=== PATIENT | male | born 1970 | race Caucasian/White ===

== ENCOUNTER 2016-06-28 15:41 | Emergency (ER) | payer MEDICAID ==
--- NOTE | 2016-06-28 15:53 | ER Document Report ---
ED Medical Screen (RME) - General Stated Complaint: LEFT ANKLE PAIN Notes: Acute on chronic left ankle pain. I greeted and performed a rapid initial assessment of this patient. Comprehensive ED assessment and evaluation of the patient, analysis of test results and completion of the medical decision making process will be conducted by additional ED providers. TRAVEL OUTSIDE OF THE [place] IN LAST 30 DAYS: No - Related Data Allergies/Adverse Reactions: No Known Allergies Allergy (Verified 04/03/16 11:09) Past Medical History - Past Medical History Cardiac Medical History: Reports: Hx Hypertension - history of Neurological Medical History: Reports: Hx Migraine GI Medical History: Reports: Hx Hepatitis Musculoskeltal Medical History: Reports Hx Arthritis, Reports Hx Musculoskeletal Deformity, Reports Hx Musculoskeletal Trauma Psychiatric Medical History: Reports: Hx Attention Deficit Hyperactivity Disorder Traumatic Medical History: Reports: Hx Fractures Infectious Medical History: Reports: Hx Hepatitis, Hx MRSA Past Surgical History: Reports: Hx Orthopedic Surgery - Right mary beth osteomyletits , rt leg ambutation, zycomatic fracture repair - Immunizations Immunizations up to date: Yes Hx Diphtheria, Pertussis, Tetanus Vaccination: Yes Physical Exam - Vital signs Vitals: Temp Pulse Resp BP Pulse Ox 98.2 F 97 20 127/85 H 98 06/28/16 15:50 06/28/16 15:50 06/28/16 15:50 06/28/16 15:50 06/28/16 15:50 Course - Vital Signs Vital signs: Temp Pulse Resp BP Pulse Ox 98.2 F 97 20 127/85 H 98 06/28/16 15:50 06/28/16 15:50 06/28/16 15:50 06/28/16 15:50 06/28/16 15:50
--- NOTE | 2016-06-28 16:48 | ER Document Report ---
HPI - HPI Patient complains to provider of: chronic ankle pain Pain Level: 4 Context: Patient is a 45-year-old male presents emergency Department complaining of acute on chronic left ankle pain. Patient has a history of osteomyelitis that her resulted in a previous right foot amputation low the ankle. Patient states that he occasionally has a flareup of pain in his left ankle that he feels requires narcotics for management. Patient is not compliant with pain management or primary care follow-up. He is also been recommended to follow up with orthopedics if she states he hasn't done recently. denies any street drugs - REPRODUCTIVE Reproductive: DENIES: : - DERM Skin Color: Normal Past Medical History - General Information source: Patient - Social History Smoking Status: Current Every Day Smoker Chew tobacco use (# tins/day): No Frequency of alcohol use: Occasional Drug Abuse: None Family History: Reviewed & Not Pertinent, DM Patient has suicidal ideation: No Patient has homicidal ideation: No - Past Medical History Cardiac Medical History: Reports: Hx Hypertension - history of Neurological Medical History: Reports: Hx Migraine Renal/ Medical History: Denies: Hx Peritoneal Dialysis GI Medical History: Reports: Hx Hepatitis Musculoskeltal Medical History: Reports Hx Arthritis, Reports Hx Musculoskeletal Deformity, Reports Hx Musculoskeletal Trauma Psychiatric Medical History: Reports: Hx Attention Deficit Hyperactivity Disorder Traumatic Medical History: Reports: Hx Fractures Infectious Medical History: Reports: Hx Hepatitis, Hx MRSA Past Surgical History: Reports: Hx Orthopedic Surgery - Right mary beth osteomyletits , rt leg ambutation, zycomatic fracture repair - Immunizations Immunizations up to date: Yes Hx Diphtheria, Pertussis, Tetanus Vaccination: Yes Vertical Provider Document - CONSTITUTIONAL Agree With Documented VS: Yes General Appearance: WD/WN, No Apparent Distress - INFECTION CONTROL TRAVEL OUTSIDE OF THE [place] IN LAST 30 DAYS: No - HEENT Notes: pupils were pinpoint but reactive to light - RESPIRATORY O2 Sat by Pulse Oximetry: 98 - CARDIOVASCULAR Pulses: Normal: Posterior tibial, Dorsalis pedis - MUSCULOSKELETAL/EXTREMETIES Musculoskeletal/Extremeties: MAEW, FROM, Tender - superficial tenderness with palpation of DP and cap refill, No Edema. negative: Eccymosis - NEURO Level of Consciousness: Awake, Alert, Appropriate Motor/Sensory: No Motor Deficit, No Sensory Deficit - DERM Integumentary: Warm, Dry, No Rash Course - Re-evaluation Re-evalutation: 06/28/16 16:45 Upon review of patient's history physical exam and previous visits there is also no evidence of acute fracture or dislocation or injury to the ankle. Patient denies any injury to the ankle. Recommending NSAIDs and prednisone Dosepak for current pain can follow-up with his primary care provider, orthopedists for pain management as indicated. - Vital Signs Vital signs: Temp Pulse Resp BP Pulse Ox 98.2 F 97 20 127/85 H 98 06/28/16 15:50 06/28/16 15:50 06/28/16 15:50 06/28/16 15:50 06/28/16 15:50 - Diagnostic Test Radiology reviewed: Image reviewed, Reports reviewed Discharge - Discharge Clinical Impression: Chronic ankle pain Qualifiers: Laterality: left Qualified Code(s): M25.572 - Pain in left ankle and joints of left foot; G89.29 - Other chronic pain Condition: Good Disposition: HOME, SELF-CARE Instructions: Ice & Elevation ([facility]) Additional Instructions: Please follow-up with your primary care provider given chronic nature of this pain. Indicated for referral to pain management. He can also follow up with Dr. Stark at orthopedics for any further evaluation. Prescriptions: Ketorolac Tromethamine [Toradol 10 mg Tablet] 10 mg PO Q8HP PRN #25 tablet PRN Reason: Prednisone 5 mg PO ASDIR #1 tab.ds.pk Referrals: BRENDON STARK MD [ACTIVE STAFF] - Follow up as needed
[2016-06-28] MEDS ORDERED: KETOROLAC TROMETHAMINE 60 MG/2 ML SDV IM ONE (16:49)
[2016-06-28 17:20] VITALS: BP 118/69
== END 2016-06-28 17:20 | disposition home or self-care (01) ==
LOC: ER 15:41
DX: G89.29 Other chronic pain (principal); M25.572 Pain in left ankle and joints of left foot; F17.200 Nicotine dependence, unspecified, uncomplicated; Z86.14 Personal history of Methicillin resistant Staphylococcus aureus infection
CPT/HCPCS: 99283; 96374; 73610; J1885

== ENCOUNTER 2016-08-04 02:53 | Emergency (ER) | payer MEDICAID ==
--- NOTE | 2016-08-04 07:59 | ER Document Report ---
HPI - HPI Patient complains to provider of: twisted left ankle Onset: Yesterday Onset/Duration: Sudden Quality of pain: Throbbing Pain Level: 4 Context: 45-year-old male twisted his left ankle on the car mat stood afternoon. X-ray is negative. Associated Symptoms: None Exacerbated by: Movement, Walking - He does not want crutches because his new infant son is being discharged today Relieved by: Denies - ROS ROS below otherwise negative: Yes Systems Reviewed and Negative: Yes All other systems reviewed and negative - REPRODUCTIVE Reproductive: DENIES: : - DERM Skin Color: Normal, [place] Past Medical History - General Information source: Patient - Social History Smoking Status: Current Every Day Smoker Chew tobacco use (# tins/day): No Frequency of alcohol use: None Drug Abuse: None Lives with: Spouse/Significant other Family History: Reviewed & Not Pertinent, DM - Past Medical History Cardiac Medical History: Reports: Hx Hypertension - history of Neurological Medical History: Reports: Hx Migraine Renal/ Medical History: Denies: Hx Peritoneal Dialysis GI Medical History: Reports: Hx Hepatitis Musculoskeltal Medical History: Reports Hx Arthritis, Reports Hx Musculoskeletal Deformity, Reports Hx Musculoskeletal Trauma Psychiatric Medical History: Reports: Hx Attention Deficit Hyperactivity Disorder Traumatic Medical History: Reports: Hx Fractures Infectious Medical History: Reports: Hx Hepatitis, Hx MRSA Past Surgical History: Reports: Hx Orthopedic Surgery - Right mary beth osteomyletits , rt leg ambutation, zycomatic fracture repair - Immunizations Immunizations up to date: Yes Hx Diphtheria, Pertussis, Tetanus Vaccination: Yes Vertical Provider Document - CONSTITUTIONAL Agree With Documented VS: Yes Exam Limitations: No Limitations - INFECTION CONTROL TRAVEL OUTSIDE OF THE [place] IN LAST 30 DAYS: No - HEENT HEENT: Normocephalic - NECK Neck: Supple - RESPIRATORY O2 Sat by Pulse Oximetry: 96 - MUSCULOSKELETAL/EXTREMETIES Musculoskeletal/Extremeties: MAEW, FROM, Tender - Just inferior to the medial malleolus, Edema - Minimal. negative: Eccymosis Notes: 2+ DP - NEURO Level of Consciousness: Awake, Alert - DERM Integumentary: Warm, Dry, No Rash Course - Vital Signs Vital signs: Temp Pulse Resp BP Pulse Ox 97.9 F 102 H 18 134/82 H 96 08/04/16 03:00 08/04/16 03:00 08/04/16 03:00 08/04/16 03:00 08/04/16 03:00 Procedures - Immobilization Left Ankle Time completed: 08:09 Pre-Proc Neuro Vasc Exam: Normal Immobilizer type: Demetrius wrap Performed by: PCT Post-Proc Neuro Vasc Exam: Normal Alignment checked and good: Yes Discharge - Discharge Clinical Impression: left ankle sprain Condition: Good Disposition: HOME, SELF-CARE Instructions: Sprained Ankle ([facility]), Anti-Inflammatory Medication ([facility]) Additional Instructions: see orthopedic doctor if persists Return to the emergency room if worse Prescriptions: Ibuprofen [Motrin 800 mg Tablet] 800 mg PO Q8HP PRN #30 tablet PRN Reason: Referrals: ABDIAS WILLETT MD [Primary Care Provider] - Follow up as needed
[2016-08-04] MEDS ORDERED: IBUPROFEN 800 MG TABLET PO ONE (08:04)
[2016-08-04 08:33] VITALS: BP 116/87
== END 2016-08-04 08:32 | disposition home or self-care (01) ==
LOC: ER 02:53
DX: S93.402A Sprain of unspecified ligament of left ankle, initial encounter (principal); X50.1XXA Overexertion from prolonged static or awkward postures, initial encounter; F17.210 Nicotine dependence, cigarettes, uncomplicated
CPT/HCPCS: 99283

== ENCOUNTER 2017-01-02 03:39 | Emergency (ER) | payer OTHER, MEDICAID ==
[2017-01-02] MEDS ORDERED: PROMETHAZINE HCL 25 MG TABLET PO ONE (03:49)
[2017-01-02] MEDS ORDERED: CLONIDINE 0.1 MG/24 HR PATCH.TDWK TD ONE (03:49)
[2017-01-02 05:06] LABS: AMORPHOUS SEDIMENT,URINE TRACE /HPF; APPEARANCE,URINE CLOUDY; BILIRUBIN,URINE NEGATIVE (NEGATIVE); GLUCOSE, URINE NEGATIVE (NEGATIVE); KETONES,URINE NEGATIVE (NEGATIVE); LEUKOCYTE ESTERASE,URINE NEGATIVE (NEGATIVE); NITRITE,URINE NEGATIVE (NEGATIVE); PROTEIN,URINE NEGATIVE (NEGATIVE); URINE SPECIFIC GRAVITY 1.024
[2017-01-02 05:23] LABS: URINE BARBITURATES SCREEN NEGATIVE; URINE METHADONE SCREEN NEGATIVE; URINE PHENCYCLIDINE SCREEN NEGATIVE
[2017-01-02 05:26] LABS: ABSOLUTE BASOPHILS # (AUTO) 0.1 10^3/uL (0.0-0.2); ABSOLUTE EOSINOPHILS # (AUTO) 0.3 10^3/uL (0.0-0.6); ABSOLUTE LYMPHOCYTES (AUTO) 2.6 10^3/uL (0.5-4.7); ABSOLUTE MONOCYTES (AUTO) 0.9 10^3/uL (0.1-1.4); ABSOLUTE NEUT (AUTO) 4.4 10^3/uL (1.7-8.2); BASOPHILS % (AUTO) 0.9 % (0-2); EOSINOPHILS % (AUTO) 3.1 % (0-6); HEMATOCRIT 39.9 % (37.9-51.0); HGB HCT DIFFERENCE 2.1; LYMPHOCYTES % (AUTO) 31.8 % (13-45); MEAN CORPUSCULAR HEMOGLOBIN 31.7 pg (27.0-33.4); MEAN CORPUSCULAR HGB CONC 35.1 g/dL (32.0-36.0); MEAN CORPUSCULAR VOLUME 90 fl (80-97); MONOCYTES % (AUTO) 10.9 % (3-13); RED BLOOD COUNT 4.42 10^6/uL (4.35-5.55); RED CELL DISTRIBUTION WIDTH 12.9 % (11.5-14.0); SEGMENTED NEUTROPHILS % (AUTO) 53.3 % (42-78); WHITE BLOOD COUNT 8.2 10^3/uL (4.0-10.5)
--- NOTE | 2017-01-02 05:28 | ER Document Report ---
ED General - General Chief Complaint: Psych Problem Stated Complaint: PSYCH EVAL Time Seen by Provider: 01/02/17 03:44 Notes: Patient is a 46-year-old male who presents with complaints of opiate dependence and severe depression. Patient says he last used heroin yesterday. He says he has had some nausea but no significant vomiting. No fevers. He says that he has a child now. He says he is trying to off opiates. He says he has been very depressed. He says he has not been suicidal but has been very depressed and wants help. He has no other complaints at this time. TRAVEL OUTSIDE OF THE [place] IN LAST 30 DAYS: No - Related Data Allergies/Adverse Reactions: No Known Allergies Allergy (Verified 08/04/16 03:58) Past Medical History - Social History Smoking Status: Current Every Day Smoker Frequency of alcohol use: Occasional Drug Abuse: Heroin Family History: Reviewed & Not Pertinent, DM - Past Medical History Cardiac Medical History: Reports: Hx Hypertension - history of Neurological Medical History: Reports: Hx Migraine Renal/ Medical History: Denies: Hx Peritoneal Dialysis GI Medical History: Reports: Hx Hepatitis Musculoskeltal Medical History: Reports Hx Arthritis, Reports Hx Musculoskeletal Deformity, Reports Hx Musculoskeletal Trauma Psychiatric Medical History: Reports: Hx Attention Deficit Hyperactivity Disorder Traumatic Medical History: Reports: Hx Fractures Infectious Medical History: Reports: Hx Hepatitis, Hx MRSA Past Surgical History: Reports: Hx Orthopedic Surgery - Right mary beth osteomyletits , rt leg ambutation, zycomatic fracture repair - Immunizations Immunizations up to date: Yes Hx Diphtheria, Pertussis, Tetanus Vaccination: Yes Review of Systems - Review of Systems Notes: My Normal Review Basic REVIEW OF SYSTEMS: CONSTITUTIONAL : Denies fever, chills, or sweats. Denies recent illness. RESPIRATORY: Denies cough, cold, or chest congestion. Denies shortness of breath, difficulty breathing, or wheezing. GASTROINTESTINAL: Denies abdominal pain. Denies nausea, vomiting, or diarrhea. Denies constipation. Last BM: MUSCULOSKELETAL: Denies neck or back pain or joint pain or swelling. SKIN: Denies rash or skin lesions. NEUROLOGICAL: Denies altered mental status or loss of consciousness. Denies headache. Denies weakness or paralysis or loss of use of either side. Denies problems with gait or speech. Denies sensory or motor loss. PSYCHIATRIC: Depression ALL OTHER SYSTEMS REVIEWED AND NEGATIVE. Physical Exam - Vital signs Vitals: Resp 16 01/02/17 03:46 - Notes Notes: General Appearance: Well nourished, alert, cooperative, no acute distress, no obvious discomfort. Tearful. Vitals: reviewed, See vital signs table. Head: no swelling or tenderness to the head Eyes: PERRL, EOMI, Conjuctiva clear Mouth: No decreasd moisture Lungs: No wheezing, No rales, No rhonci, No accessory muscle use, good air exchange bilaterally. Heart: Normal rate, Regular rythm, No murmur, no rub Abdomen: Normal BS, soft, No rigidity, No abdominal tenderness, No guarding, no rebound, no abdominal masses, no organomegaly Extremities: strength 5/5 in all extremities, good pulses in all extremities, no swelling or tenderness in the extremities, no edema. Skin: warm, dry, appropriate color, no rash Neuro: speech clear, oriented x 3, normal affect, responds appropriately to questions. Course - Re-evaluation Re-evalutation: 01/02/17 06:44 Patient is medically stable for psychiatric evaluation due to his depression and opiate dependence. Patient is currently voluntary and does not currently meet criteria for involuntary commitment. 01/02/17 06:46 - Vital Signs Vital signs: Temp Pulse Resp BP Pulse Ox 97.4 F 80 16 127/79 H 97 01/02/17 05:39 01/02/17 05:39 01/02/17 03:46 01/02/17 05:39 01/02/17 05:39 - Laboratory Result Diagrams: 01/02/17 05:00 01/02/17 05:00 Laboratory results interpreted by me: 01/02/17 01/02/17 04:30 05:00 AST 64 H Urine Urobilinogen 4.0 H Salicylates < 1.0 L Acetaminophen < 10 L - EKG Interpretation by Me Additional EKG results interpreted by me: 01/02/17 05:28 EKG is reviewed and interpreted by me. EKG shows normal sinus rhythm with a rate of [address] segment elevation or depression. No ischemic T-wave inversions. [place] interval, QRS duration, QTc intervals are within normal range. Old EKG for comparison is from May 26, 2015. Discharge - Discharge Clinical Impression: Opiate abuse, continuous Depression Qualifiers: Depression Type: unspecified Qualified Code(s): F32.9 - Major depressive disorder, single episode, unspecified Condition: Stable Disposition: PSYCH HOSP/UNIT
[2017-01-02 05:29] LABS: URINE OPIATES LOW UNCONFIRMED POSITIVE
[2017-01-02 05:30] LABS: ALANINE AMINOTRANSFERASE 64 U/L (21-72); ALBUMIN 3.6 g/dL (3.5-5.0); ALKALINE PHOSPHATASE 63 U/L (38-126); ANION GAP 8 (5-19); ASPARTATE AMINO TRANSFERASE 64 U/L (17-59); BILIRUBIN,DIRECT 0.3 mg/dL (0.0-0.4); BILIRUBIN,TOTAL 0.6 mg/dL (0.2-1.3); BLOOD UREA NITROGEN 14 mg/dL (7-20); CALCIUM 8.9 mg/dL (8.4-10.2); CARBON DIOXIDE 26 mmol/L (22-30); CHLORIDE 105 mmol/L (98-107); CREATININE RESULT 0.87 mg/dL (0.52-1.25); GLUCOSE 102 mg/dL (75-110); POTASSIUM 4.1 mmol/L (3.6-5.0); SODIUM 139.1 mmol/L (137-145); TOTAL PROTEIN 7.5 g/dL (6.3-8.2)
[2017-01-02 05:31] LABS: ALCOHOL < 10 mg/dL (NONE DETECTED)
--- NOTE | 2017-01-02 05:57 | EKG REPORT ---
SEVERITY:- NORMAL ECG - SINUS RHYTHM : Confirmed by: Gabbi Gaines MD 02-Jan-2017 05:57:02
--- NOTE | 2017-01-02 11:03 | ER Document Report ---
ED Psych Disorder / Suicide - General TRAVEL OUTSIDE OF THE [place] IN LAST 30 DAYS: No <MACHO HASTINGS - Last Filed: 01/02/17 08:51> <BIRD PATRICIO - Last Filed: 01/02/17 13:17> - General Chief Complaint: Psych Problem Stated Complaint: PSYCH EVAL Time Seen by Provider: 01/02/17 03:44 - HPI Notes: Patient is a 46-year-old male who presents with complaints of opiate dependence and severe depression. Patient says he last used heroin yesterday. He says he has had some nausea but no significant vomiting. No fevers. He says that he has a child now. He says he is trying to off opiates. He says he has been very depressed. He says he has not been suicidal but has been very depressed and wants help. Patient states he came to [facility] ED because he is "strung out, I need help both physically and mentally." Patient states he has never gone in patient for substances abuse. His drug of choice is heroin and he has been using "a while. " Patient disclosed he has a mental health history to include diagnosis of ADHA , depression and bipolar. He was diagnosed back "sometime time in the 80s while in longterm." Patient states he has been in longterm "more than 10 times" the last being in 2013. Patient states he came for substance abuse treatment assistance. Clinician provided both in patient and out patient substance abuse treatment resources; patient became agitated stating "you are not going to send my to [facility]?" it was explained to patient [facility] do not provide substance abuse treatment only mental health. Patient came anger stating clinician was not helping him, he has both substance abuse and mental health and he came for help. Patient started to cuss and demand his clothing. Patient has current arrest on November 04, 2016 (released from [facility] November 07, 2016) for possession of control substance schedule 1, and two counts of drug paraphernalia. Patient has 8 current up coming cases in court; Reckless driving , failure to stop/hit and run (01/27/2017), Speeding reckless driving (01/28/2017) , DWLR, not impaired (01/28/2017), failure to wear seat belt/ DWLR, not impaired (02/06/2017),DWLR, not impaired (02/25/2017), tags, no registration (2016), no insurance (02/25/2017), possession of heroin/paraphernalia (03/17/2017) . Patient is alert and orientated to person, place, time and circumstance. Mood is irritable with expressive affect. Patient is verbal with yelling and cussing. Patient denies suicidal and homicidal ideation. no delusions are noted. Patient is not demonstrating any behaviour congruent with responding to internal stimuli. Thought process is organized and linear. Patient made no eye contact until be became upset and starting yelling. conversational speech was low and mumbled until agitation which turned to yelling and cussing. Intellectually abilities appear to be average range. Attention and concentration are poor. Insight, judgment and impulse control appear to be historical poor do to substance abuse. 304.00 (F11.20) Opioid Abuse; severe -Heroin impression/plan: patient is psychiatrically cleared for discharge. Patient does not meet IVC criteria per [place] GS 122C. Patient denies suicidal and homicidal ideation. 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 Patient was provided both in patient and out patient substance abuse resources. Patient is recommended to follow up for his substance abuse treatment. Dr. Dodson was consulted on the care and management of this patient ; attending physician is in agreement with recommendations and disposition. ( MACHO HASTINGS) - Related Data Allergies/Adverse Reactions: No Known Allergies Allergy (Verified 08/04/16 03:58) Past Medical History - Social History Smoking Status: Current Every Day Smoker Frequency of alcohol use: Occasional Drug Abuse: Heroin Family History: Reviewed & Not Pertinent, DM - Past Medical History Cardiac Medical History: Reports: Hx Hypertension - history of Neurological Medical History: Reports: Hx Migraine Renal/ Medical History: Denies: Hx Peritoneal Dialysis GI Medical History: Reports: Hx Hepatitis Musculoskeltal Medical History: Reports Hx Arthritis, Reports Hx Musculoskeletal Deformity, Reports Hx Musculoskeletal Trauma Psychiatric Medical History: Reports: Hx Attention Deficit Hyperactivity Disorder Traumatic Medical History: Reports: Hx Fractures Infectious Medical History: Reports: Hx Hepatitis, Hx MRSA Past Surgical History: Reports: Hx Orthopedic Surgery - Right mary beth osteomyletits , rt leg ambutation, zycomatic fracture repair - Immunizations Immunizations up to date: Yes Hx Diphtheria, Pertussis, Tetanus Vaccination: Yes <MACHO HASTINGS - Last Filed: 01/02/17 08:51> Course - Laboratory Result Diagrams: 01/02/17 05:00 01/02/17 05:00 <MACHO HASTINGS - Last Filed: 01/02/17 08:51> - Laboratory Result Diagrams: 01/02/17 05:00 01/02/17 05:00 <BIRD PATRICIO - Last Filed: 01/02/17 13:17> - Re-evaluation Re-evalutation: 01/02/17 13:09 Patient does not meet IVC criteria, he has been evaluated by mental health, is both medically and psychiatrically cleared. Discussed with patient that it is very difficult to get into an inpatient substance abuse program however we are referring him to multiple outpatient resources. Patient states that if what he needs to do to be involuntary committed is to walk outside of the emergency department and slept someone he will do that so that he can come back and be involuntarily committed. I discussed with the patient that planning to walk started outside of the emergency department and slept somebody would not meet admission criteria either for IVC he would instead be charged with assault and I recommended against it the patient assaulting somebody. Patient has no evidence of hallucinations and no suicidal ideation, no homicidal ideation. Patient is discharged to home and recommended to follow-up with [facility]. Given medications to help with any withdrawal symptoms he may develop. No active withdrawal at this time (BIRD PATRICIO) - Vital Signs Vital signs: Temp Pulse Resp BP Pulse Ox 97.8 F 78 18 133/94 H 98 01/02/17 10:15 01/02/17 10:15 01/02/17 10:15 01/02/17 10:15 01/02/17 10:15 - Laboratory Laboratory results interpreted by me: 01/02/17 01/02/17 04:30 05:00 AST 64 H Urine Urobilinogen 4.0 H Salicylates < 1.0 L Acetaminophen < 10 L Discharge <MACHO HASTINGS - Last Filed: 01/02/17 08:51> <BIRD PATRICIO - Last Filed: 01/02/17 13:17> - Discharge Clinical Impression: Opiate abuse, continuous Depression Qualifiers: Depression Type: unspecified Qualified Code(s): F32.9 - Major depressive disorder, single episode, unspecified Condition: Stable Disposition: HOME, SELF-CARE Additional Instructions: NARCOTIC / OPIOD ABUSE: Narcotics and opiods are pain-relieving drugs that are often abused. They are addicting. Narcotics cause euphoria, but it often takes increasing amounts to "feel good" and avoid withdrawal symptoms. Overdose of narcotics causes small pupils, coma, and decreased breathing. It's a common cause of . Purity of street narcotics is unpredictable. Injection of narcotics is risky for abscesses, endocarditis (heart infection), pneumonia, and AIDS. Withdrawal from narcotics causes goose bumps, watery mouth, sweating, nasal congestion, muscle aches, abdominal cramps, vomiting, and diarrhea. There 's often restlessness and confusion. Treatment programs are available, but you must make the decision to quit. Medication (such as clonidine) can be prescribed to control the symptoms of withdrawal. FOLLOW-UP CARE: You have been provided both inpatient and outpatient substance abuse resources. Please follow up with your chosen provider upon discharge for your substance abuse treatment. If you experience worsening or a significant change in your symptoms, notify the physician immediately or return to the Emergency Department at any time for re-evaluation. Prescriptions: Dicyclomine HCl [Bentyl 20 mg Tablet] 20 mg PO QID #40 tablet Ibuprofen 800 mg PO TIDP #30 tablet Ondansetron [Zofran Odt 4 mg Tablet] 1 - 2 tab PO Q4H PRN #15 tab.rapdis PRN Reason: For Nausea/Vomiting Referrals: [facility] [Provider Group] - 01/02/17 [facility] [Provider Group] - Follow up in 3-5 days
[2017-01-02 17:53] VITALS: BP 134/88
== END 2017-01-02 13:26 | disposition home or self-care (01) ==
LOC: ER 03:39
DX: F11.20 Opioid dependence, uncomplicated (principal); F32.9 Major depressive disorder, single episode, unspecified; F17.200 Nicotine dependence, unspecified, uncomplicated
CPT/HCPCS: 93005; 99284; 36415; 80307 ×4; 85025; 80053; 81001; 93010; J3490 ×2

== ENCOUNTER 2017-01-25 12:36 | Emergency (ER) | payer MEDICAID, OTHER ==
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
[2017-01-25 13:56] VITALS: BP 133/89
== END 2017-01-25 13:54 | disposition home or self-care (01) ==
LOC: ER 12:36
DX: M25.571 Pain in right ankle and joints of right foot (principal); W50.0XXA Accidental hit or strike by another person, initial encounter; Z89.431 Acquired absence of right foot; I10 Essential (primary) hypertension; F17.200 Nicotine dependence, unspecified, uncomplicated
CPT/HCPCS: 99283

== ENCOUNTER 2017-11-27 18:36 | Emergency (ER) | payer OTHER, MEDICAID ==
--- NOTE | 2017-11-27 19:08 | ER Document Report ---
ED Medical Screen (RME) - General Chief Complaint: Head Injury with LOC Stated Complaint: FALL/DIZZY Time Seen by Provider: 11/27/17 18:59 Notes: RAPID MEDICAL EVALUATION DISCLOSURE I have seen this patient as part of a Rapid Medical Evaluation and, if applicable, placed any initially appropriate orders. The patient will be seen and fully evaluated, including a full history and physical exam, by a provider ( in Main ED or Fast Track) when a room becomes available. 47-year-old male here with group manager's deputy after he had an episode of syncope with collapse at the intermediate center. He reports being lightheaded over the past few weeks but today has progressively worsened and he was walking down the hallway and the next thing he remembers he was lying on the floor. He did not have any perirectal headache chest pain shortness of breath or any other symptoms other than lightheadedness and nausea. He complains of pain to the right frontal area of his head neck and left forearm where he hit the floor. He does not take any blood thinners. He also states he has had multiple operations on his right eye and that ever since the fall, he has been having "flashes of white". EXAM No significant soft tissue scalp swelling Mild TTP of the left distal forearm without obvious deformity or bruising TRAVEL OUTSIDE OF THE [place] IN LAST 30 DAYS: No - Related Data Allergies/Adverse Reactions: No Known Allergies Allergy (Verified 11/27/17 18:37) Past Medical History - Past Medical History Cardiac Medical History: Reports: Hx Hypertension - history of Neurological Medical History: Reports: Hx Migraine Renal/ Medical History: Denies: Hx Peritoneal Dialysis GI Medical History: Reports: Hx Hepatitis Musculoskeltal Medical History: Reports Hx Arthritis, Reports Hx Musculoskeletal Deformity, Reports Hx Musculoskeletal Trauma Psychiatric Medical History: Reports: Hx Attention Deficit Hyperactivity Disorder Traumatic Medical History: Reports: Hx Fractures Infectious Medical History: Reports: Hx Hepatitis, Hx MRSA Past Surgical History: Reports: Hx Orthopedic Surgery - Right mary beth osteomyletits , rt leg ambutation, zycomatic fracture repair - Immunizations Immunizations up to date: Yes Hx Diphtheria, Pertussis, Tetanus Vaccination: Yes Doctor's Discharge - Discharge Referrals: ABDIAS WILLETT MD [Primary Care Provider] - Follow up as needed
[2017-11-27 19:29] LABS: ABSOLUTE BASOPHILS # (AUTO) 0.1 10^3/uL (0.0-0.2); ABSOLUTE EOSINOPHILS # (AUTO) 0.3 10^3/uL (0.0-0.6); ABSOLUTE LYMPHOCYTES (AUTO) 2.6 10^3/uL (0.5-4.7); ABSOLUTE MONOCYTES (AUTO) 1.2 10^3/uL (0.1-1.4); ABSOLUTE NEUT (AUTO) 6.1 10^3/uL (1.7-8.2); BASOPHILS % (AUTO) 1.4 % (0-2); EOSINOPHILS % (AUTO) 3.1 % (0-6); HEMATOCRIT 43.2 % (37.9-51.0); HEMOGLOBIN 15.1 g/dL (13.5-17.0); LYMPHOCYTES % (AUTO) 24.8 % (13-45); MEAN CORPUSCULAR HEMOGLOBIN 31.5 pg (27.0-33.4); MEAN CORPUSCULAR HGB CONC 35.1 g/dL (32.0-36.0); MEAN CORPUSCULAR VOLUME 90 fl (80-97); MONOCYTES % (AUTO) 11.9 % (3-13); PLATELET COUNT 262 10^3/uL (150-450); RED BLOOD COUNT 4.81 10^6/uL (4.35-5.55); RED CELL DISTRIBUTION WIDTH 12.7 % (11.5-14.0); SEGMENTED NEUTROPHILS % (AUTO) 58.8 % (42-78); TOTAL CELLS COUNTED % (AUTO) 100 %; WHITE BLOOD COUNT 10.4 10^3/uL (4.0-10.5)
[2017-11-27 19:41] LABS: ALANINE AMINOTRANSFERASE 122 U/L (21-72); ALBUMIN 4.2 g/dL (3.5-5.0); ALKALINE PHOSPHATASE 58 U/L (38-126); ANION GAP 11 (5-19); ASPARTATE AMINO TRANSFERASE 90 U/L (17-59); BILIRUBIN,DIRECT 0.3 mg/dL (0.0-0.4); BILIRUBIN,TOTAL 0.5 mg/dL (0.2-1.3); BLOOD UREA NITROGEN 16 mg/dL (7-20); CALCIUM 9.6 mg/dL (8.4-10.2); CARBON DIOXIDE 26 mmol/L (22-30); CHLORIDE 104 mmol/L (98-107); GLUCOSE 95 mg/dL (75-110); POTASSIUM 4.6 mmol/L (3.6-5.0); SODIUM 140.8 mmol/L (137-145); TOTAL PROTEIN 8.3 g/dL (6.3-8.2)
--- NOTE | 2017-11-27 20:03 | RADIOLOGY REPORT (SQ) ---
EXAM DESCRIPTION: CT HEAD WITHOUT COMPLETED DATE/TIME: 11/27/2017 7:49 pm REASON FOR STUDY: syncope w collapse COMPARISON: 04/02/2016 TECHNIQUE: Axial images acquired through the brain without intravenous contrast. Images reviewed wi th bone, brain and subdural windows. Images stored on PACS. All CT scanners at this facility use dose modulation, iterative reconstruction, and/or weight based d osing when appropriate to reduce radiation dose to as low as reasonably achievable (ALARA). [facility]: Dose Right [facility]: CareDose [facility]: Dose Right [facility]: Teradose 4D [facility]: Smart ZAP RADIATION DOSE: CT Rad equipment meets quality standard of care and radiation dose reduction techniq ues were employed. CTDIvol: 53.2 mGy. DLP: 1017 mGy-cm. mGy. LIMITATIONS: None. FINDINGS: VENTRICLES: Normal size and contour. CEREBRUM: No masses. No hemorrhage. No midline shift. No evidence for acute infarction. Normal gra y/white matter differentiation. No areas of low density in the white matter. CEREBELLUM: No masses. No hemorrhage. No alteration of density. No evidence for acute infarction. EXTRAAXIAL SPACES: No fluid collections. No masses. ORBITS AND GLOBE: No intra- or extraconal masses. Normal contour of globe without masses. CALVARIUM: No fracture. PARANASAL SINUSES: No fluid or mucosal thickening. SOFT TISSUES: No mass or hematoma. OTHER: No other significant finding. IMPRESSION: No acute intracranial findings. EVIDENCE OF ACUTE STROKE: NO. COMMENT: Quality ID # [id number]: Final reports with documentation of one or more dose reduction techniques (e.g., Automated exposure control, adjustment of the mA and/or kV according to patient size, use of iterative reconstruction technique) TECHNICAL DOCUMENTATION: JOB ID: [id number] [place]-72 2010 [employer]- All Rights Reserved Reading location - IP/workstation name: [employer]
--- NOTE | 2017-11-27 20:06 | RADIOLOGY REPORT (SQ) ---
EXAM DESCRIPTION: CT CERVICAL SPINE WITHOUT COMPLETED DATE/TIME: 11/27/2017 7:49 pm REASON FOR STUDY: syncope w collapse COMPARISON: None. TECHNIQUE: Axial images acquired through the cervical spine without intravenous contrast. Images re viewed with lung, soft tissue and bone windows. Reconstructed coronal and sagittal MPR images review ed. Images stored on PACS. All CT scanners at this facility use dose modulation, iterative reconstruction, and/or weight based d osing when appropriate to reduce radiation dose to as low as reasonably achievable (ALARA). [facility]: Dose Right [facility]: CareDose [facility]: Dose Right [facility]: Teradose 4D [facility]: Smart Technologies RADIATION DOSE: CT Rad equipment meets quality standard of care and radiation dose reduction techniq ues were employed. CTDIvol: 17.1 mGy. DLP: 451 mGy-cm. mGy. LIMITATIONS: None. FINDINGS: ALIGNMENT: Anatomic. MINERALIZATION: Normal. VERTEBRAL BODIES: No fractures or dislocation. DISCS: Multilevel disc space narrowing with osteophytes. FACETS, LATERAL MASSES, POSTERIOR ELEMENTS: Facet arthropathy. No fractures. No dislocation. No ac mechoopda findings. HARDWARE: None in the spine. VISUALIZED RIBS: No fractures. LUNG APICES AND SOFT TISSUES: No significant or acute findings. OTHER: No other significant finding. IMPRESSION: CHRONIC DEGENERATIVE CHANGES. NO ACUTE FINDINGS. TECHNICAL DOCUMENTATION: JOB ID: [id number] [place]-72 Quality ID # [id number]: Final reports with documentation of one or more dose reduction techniques (e.g., Au tomated exposure control, adjustment of the mA and/or kV according to patient size, use of iterative reconstruction technique) 2010 [employer]- All Rights Reserved Reading location - IP/workstation name: [employer]
--- NOTE | 2017-11-27 20:07 | RADIOLOGY REPORT (SQ) ---
EXAM DESCRIPTION: WRIST LEFT 2 VIEWS COMPLETED DATE/TIME: 11/27/2017 7:57 pm REASON FOR STUDY: syncope w collapse; eval distal F/A fx COMPARISON: None. NUMBER OF VIEWS: 2 TECHNIQUE: AP and lateral radiographic images acquired of the left wrist. LIMITATIONS: None. FINDINGS: MINERALIZATION: Normal. BONES: No acute fracture or dislocation. No worrisome bone lesions. Normal alignment. SOFT TISSUES: No soft tissue swelling. No foreign body. OTHER: No other significant finding. IMPRESSION: NO RADIOGRAPHIC EVIDENCE OF ACUTE INJURY. TECHNICAL DOCUMENTATION: JOB ID: [id number] [place]-72 2010 [employer]- All Rights Reserved Reading location - IP/workstation name: [employer]
--- NOTE | 2017-11-27 20:09 | RADIOLOGY REPORT (SQ) ---
EXAM DESCRIPTION: CHEST 2 VIEWS COMPLETED DATE/TIME: 11/27/2017 7:57 pm REASON FOR STUDY: syncope w collapse COMPARISON: 08/09/2014 EXAM PARAMETERS: NUMBER OF VIEWS: two views TECHNIQUE: Digital Frontal and Lateral radiographic views of the chest acquired. RADIATION DOSE: NA LIMITATIONS: none FINDINGS: LUNGS AND PLEURA: No acute opacities, masses or pneumothorax. No pleural effusion. MEDIASTINUM AND HILAR STRUCTURES: No masses or contour abnormalities. HEART AND VASCULAR STRUCTURES: Heart normal size. No evidence for failure. BONES: No acute findings. HARDWARE: None in the chest. OTHER: No other significant finding. IMPRESSION: NO ACUTE RADIOGRAPHIC FINDING IN THE CHEST. TECHNICAL DOCUMENTATION: JOB ID: [id number] [place]-72 2010 [employer]- All Rights Reserved Reading location - IP/workstation name: [email or web address]
--- NOTE | 2017-11-27 20:37 | ER Document Report ---
ED Headache - General Chief Complaint: Head Injury with LOC Stated Complaint: FALL/DIZZY Time Seen by Provider: 11/27/17 18:59 Notes: The patient is a 47-year-old male with a past medical history of polysubstance abuse, Currently residing in halfway who presents after he had a near syncopal episode falling and striking his head and left wrist. The patient also notes that since that time he has had some spotting of his vision on the right which is the eye that he has had a retinal detachment surgery done in the remote past. He notes a dull, throbbing, constant pain to his forehead and left wrist. Nothing improves or worsens the pain to the affected areas. He denies any focal weakness, numbness or confusion. He does not take any form of anticoagulation. He denies any history of congestive heart failure, kidney disease, or recurrent episodes of syncope. He arrives in the custody of a [employer] deputy. TRAVEL OUTSIDE OF THE [place] IN LAST 30 DAYS: No - Related Data Allergies/Adverse Reactions: No Known Allergies Allergy (Verified 11/27/17 18:37) Past Medical History - General Information source: Patient - Social History Smoking Status: Current Every Day Smoker Frequency of alcohol use: 3-4 shots every night Drug Abuse: Other Lives with: Other - [facility] Family History: Reviewed & Not Pertinent, DM Patient has suicidal ideation: No Patient has homicidal ideation: No - Past Medical History Cardiac Medical History: Reports: Hx Hypertension - history of Neurological Medical History: Reports: Hx Migraine Renal/ Medical History: Denies: Hx Peritoneal Dialysis GI Medical History: Reports: Hx Hepatitis Musculoskeltal Medical History: Reports Hx Arthritis, Reports Hx Musculoskeletal Deformity, Reports Hx Musculoskeletal Trauma Psychiatric Medical History: Reports: Hx Attention Deficit Hyperactivity Disorder Traumatic Medical History: Reports: Hx Fractures Infectious Medical History: Reports: Hx Hepatitis, Hx MRSA Past Surgical History: Reports: Hx Orthopedic Surgery - Right mary beth osteomyletits , rt leg ambutation, zycomatic fracture repair - Immunizations Immunizations up to date: Yes Hx Diphtheria, Pertussis, Tetanus Vaccination: Yes Review of Systems - Review of Systems Notes: Constitutional: Negative for fever. HENT: Negative for sore throat. Eyes: Positive for spotting of vision of the right eye Cardiovascular: Negative for chest pain. Respiratory: Negative for shortness of breath. Gastrointestinal: Negative for abdominal pain, vomiting or diarrhea. Genitourinary: Negative for dysuria. Musculoskeletal: Positive for left wrist pain Skin: Negative for rash. Neurological: Positive for head trauma 10 point ROS negative except as marked above and in HPI. Physical Exam - Vital signs Vitals: Temp 97.9 F 11/27/17 19:25 Interpretation: Normal Notes: PHYSICAL EXAMINATION: GENERAL: Well-appearing, no acute distress. HEAD: Atraumatic, normocephalic. EYES: Pupils equal round and reactive to light, extraocular movements intact, sclera anicteric, conjunctiva are normal. Bedside ultrasound of the right orbit without evidence of retinal detachment. ENT: nares patent, no oral pharyngeal trauma. No hemotympanum, no Berry's sign , no raccoon eyes. NECK: No midline cervical spine tenderness. Patient able to move their head to 45 bilaterally without any discomfort. LUNGS: Breath sounds clear to auscultation bilaterally and equal. No wheezes rales or rhonchi. HEART: Regular rate and rhythm without murmurs. CHEST WALL: No ecchymosis over the chest wall. ABDOMEN: Soft, nontender, normoactive bowel sounds. No guarding, no rebound. No abdominal bruising EXTREMITIES: Normal range of motion, no pitting or edema. Amputation of the right foot BACK: No midline spinal tenderness, step-offs, or deformities. NEUROLOGICAL: Face symmetric. Tongue protrudes midline. Extraocular motions intact. Pupils are 2 mm and equally reactive. Normal speech, normal gait. 5 out of 5 strength in both the distal and proximal upper and lower extremities bilaterally. Sensation is grossly intact throughout. Finger to nose testing normal. Pronator drift normal. PSYCH: Normal mood, normal affect. SKIN: Warm, Dry, normal turgor, no rashes or lesions noted. Course - Re-evaluation Re-evalutation: 11/27/17 20:31 Presentation of syncope of unclear etiology. Patient normotensive, alert, without focal neurologic deficits at time of arrival. Denies syncope was during exertion. No preceding symptoms of palpitations, chest pain, or shortness of breath. Patient asymptomatic at time of arrival. EKG is without evidence of HCOM , right heart strain, ST changes to suggest ischemia, prolong QTc, delta wave, epsilon wave, or Brugada syndrome. Patient denies any family history of sudden cardiac , personal history of of structural heart disease. Patient denies any symptoms to suggest an acute PE, MS, TAD, SAH, seizure, or acute GI bleed as the etiology of their syncope today. On exam, no murmurs to suggest critical aortic stenosis as possible etiology. Patient did apparently strike his head and neck during the fall as well as his left wrist. CT of the head and cervical spine are clear as obtained in triage. Left wrist x-ray without any evidence of deformity or fracture. The patient was complaining of some floaters in his left eye which has a history of a complete retinal detachment. Ultrasound examination does not show any evidence of a retinal detachment but I have explained to the patient that he does require urgent ophthalmology follow- up to further verify if there is any potential recurrence of a partial or complete retinal detachment. Based on overall clinical history, exam findings, vitals, and patients appearance, I feel it is safe for patient to be discharged home at this time with close outpatient follow-up and strict return precautions. Patient is in agreement with this plan, has verbalized indications for return to ED, and questions have been answered. - Vital Signs Vital signs: Temp Pulse Resp BP Pulse Ox 97.9 F 55 L 20 119/79 100 11/27/17 19:25 11/27/17 20:56 11/27/17 20:00 11/27/17 20:56 11/27/17 20:00 - Laboratory Result Diagrams: 11/27/17 19:10 11/27/17 19:10 Laboratory results interpreted by me: 11/27/17 19:10 AST 90 H ALT 122 H Total Protein 8.3 H - Diagnostic Test Radiology reviewed: Image reviewed, Reports reviewed Radiology results interpreted by me: 11/27/17 20:32 CT of the head: No acute skull fractures or intracranial bleed Chest x-ray: No acute infiltrate or pneumothorax Left wrist x-ray: No acute fracture dislocation - EKG Interpretation by Me Additional EKG results interpreted by me: 11/27/17 20:34 Sinus rhythm. Rate 60. No ST elevations or depressions. QTC is 424. Discharge - Discharge Clinical Impression: Neck pain, Left wrist pain, Vitreous floaters of right eye Syncope Qualifiers: Syncope type: unspecified Qualified Code(s): R55 - Syncope and collapse Head trauma Qualifiers: Encounter type: initial encounter Qualified Code(s): S09.90XA - Unspecified injury of head, initial encounter Condition: Good Disposition: HOME, SELF-CARE Additional Instructions: You have been seen in the Emergency Department (ED) today following a fall. Your workup today did not reveal any injuries that require you to stay in the hospital. You can expect, though, to be stiff and sore for the next several days. You can take ibuprofen 600 mg every 6 hours as needed for pain. You can apply a hot pack or electric heating pad to the sore areas. You can also use topical "Aspercreme with lidocaine" to sore areas as needed. As we discussed today the floaters in your right eye could be a recurrence of a partial retinal detachment although your ultrasound right now is overall reassuring. The halfway needs to arrange for you to have ophthalmology follow-up within the next 24-48 hours to further clarify the cause of the floaters in your right eye. Call your doctor or return to the ED if you develop a sudden or severe headache , confusion, slurred speech, facial droop, weakness or numbness in any arm or leg, extreme fatigue, vomiting more than two times, severe abdominal pain, or other symptoms that concern you. Referrals: HILLARY HEMPHILL MD [ACTIVE STAFF] - Follow up as needed ABDIAS WILLETT MD [Primary Care Provider] - Follow up tomorrow
[2017-11-27 20:58] VITALS: BP 119/79
--- NOTE | 2017-11-27 23:34 | EKG REPORT ---
SEVERITY:- NORMAL ECG - SINUS RHYTHM : Confirmed by: Santiago Gutiérrez MD 27-Nov-2017 23:33:23
== END 2017-11-27 20:58 | disposition home or self-care (01) ==
LOC: ER 18:36
DX: S09.90XA Unspecified injury of head, initial encounter (principal); H43.391 Other vitreous opacities, right eye; M54.2 Cervicalgia; M25.532 Pain in left wrist; R55 Syncope and collapse; W19.XXXA Unspecified fall, initial encounter; F17.200 Nicotine dependence, unspecified, uncomplicated; I10 Essential (primary) hypertension
CPT/HCPCS: 93005; 99285; 36415; 83735; 84100; 85025; 80053; 84484; 71046; 73100; 70450; 72125; 93010; L0120

== ENCOUNTER 2018-01-07 15:08 | Emergency (ER) | payer MEDICAID ==
[2018-01-07] MEDS ORDERED: SULFAMETHOXAZOLE/TRIMETHOPRIM 800-160 MG TABLET PO ONE (15:52)
--- NOTE | 2018-01-07 15:52 | ER Document Report ---
ED Psych Disorder / Suicide - General Stated Complaint: PSYCH EVAL Time Seen by Provider: 01/07/18 15:28 Information source: Patient Notes: 47-year-old male who presents today stating that he has been off his psychiatry medications for greater than 2 months. Patient states he has previously seen someone at [facility]. Patient admits to have a history of bipolar disorder as well as heroin abuse. He states he used heroin 2 last week. Patient is having some passive suicidal ideations. He denies any auditory or visual hallucinations. Patient is very upset that he believes the mom of his 18-month- old child has gone missing. He is afraid that she is either " or doing drugs". The child is currently living with the patient's grandmother. The patient does not live with the grandmother himself. Patient denies any headache, neck pain, chest pain, abdominal pain, weakness or numbness. TRAVEL OUTSIDE OF THE [place] IN LAST 30 DAYS: No - HPI Patient complains to provider of: Other - See above Onset: Other - See above Onset was: Gradual Quality of pain: Achy Severity: Moderate Pain Level: Denies Suicide Risk Factors: Other - See above Situational problems related to: Other Associated symptoms: Restlessness Similar symptoms previously: Yes Recently seen / treated by doctor: Yes - Related Data Allergies/Adverse Reactions: No Known Allergies Allergy (Verified 11/27/17 18:37) Past Medical History - General Information source: Patient - Social History Smoking Status: Former Smoker Cigarette use (# per day): No Chew tobacco use (# tins/day): No Smoking Education Provided: No Frequency of alcohol use: None Drug Abuse: Heroin Family History: Reviewed & Not Pertinent, DM - Past Medical History Cardiac Medical History: Reports: Hx Hypertension - history of Neurological Medical History: Reports: Hx Migraine Renal/ Medical History: Denies: Hx Peritoneal Dialysis GI Medical History: Reports: Hx Hepatitis Musculoskeletal Medical History: Reports Hx Arthritis, Reports Hx Musculoskeletal Deformity, Reports Hx Musculoskeletal Trauma Psychiatric Medical History: Reports: Hx Attention Deficit Hyperactivity Disorder Traumatic Medical History: Reports: Hx Fractures Infectious Medical History: Reports: Hx Hepatitis, Hx MRSA Past Surgical History: Reports: Hx Orthopedic Surgery - Right mary beth osteomyletits , rt leg ambutation, zycomatic fracture repair - Immunizations Immunizations up to date: Yes Hx Diphtheria, Pertussis, Tetanus Vaccination: Yes Review of Systems - Review of Systems Constitutional: denies: Fever EENT: denies: Eye discharge, Nose discharge Respiratory: denies: Short of breath Gastrointestinal: denies: Vomiting Genitourinary: denies: Dysuria Musculoskeletal: denies: Leg swelling Skin: Other - no hives. denies: Rash Neurological/Psychological: Other - no slurred speech -: Yes All other systems reviewed and negative Physical Exam - Vital signs Vitals: Temp Pulse Resp BP Pulse Ox 97.5 F 81 20 114/69 97 01/07/18 16:27 01/07/18 16:27 01/07/18 16:27 01/07/18 16:27 01/07/18 16:27 Notes: Reviewed vital signs and nursing note as charted by RN. CONSTITUTIONAL: Alert and oriented. 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 Patient has 2 small pustules to the left elbow with no fluctuance, induration, or surrounding erythema SKIN: See above NEURO: Moves all extremities equally; Motor and sensory function intact PSYCH: Patient appears restless. Course - Re-evaluation Re-evalutation: 01/07/18 15:52 Given the above history and physical examination we will order psychiatric profile laboratory values and have the psychology team see and evaluate the patient. Given the small pustules with no obvious fluctuance I do not believe I&D is required. I will start the patient on a course of Bactrim. 01/07/18 16:25 EKG shows a heart of 75, normal sinus rhythm, normal axis, no obvious ST elevation or depression. Minimally prolonged QT interval - Vital Signs Vital signs: Temp Pulse Resp BP Pulse Ox 97.5 F 81 20 114/69 97 01/07/18 16:27 01/07/18 16:27 01/07/18 16:27 01/07/18 16:27 01/07/18 16:27 - Laboratory Result Diagrams: 01/07/18 16:10 01/07/18 16:10 Laboratory results interpreted by me: 01/07/18 01/07/18 01/07/18 16:10 16:10 17:06 WBC 14.6 H RDW 14.1 H Seg Neuts % (Manual) 89 H Lymphocytes % (Manual) 5 L Abs Neuts (Manual) 13.0 H BUN 34 H Glucose 140 H Total Bilirubin 1.7 H AST 258 H ALT 146 H Urine Protein 30 H Urine Urobilinogen 4.0 H Salicylates < 1.0 L Acetaminophen < 10 L Discharge - Discharge Clinical Impression: Suicidal ideation, Heroin abuse, Abscess of bursa of left elbow, Cocaine abuse Referrals: ABDIAS WILLETT MD [Primary Care Provider] - Follow up as needed
[2018-01-07 16:37] LABS: HEMATOCRIT 42.6 % (37.9-51.0); HEMOGLOBIN 14.9 g/dL (13.5-17.0); MEAN CORPUSCULAR HEMOGLOBIN 32.2 pg (27.0-33.4); MEAN CORPUSCULAR VOLUME 92 fl (80-97); PLATELET COUNT 225 10^3/uL (150-450); RED BLOOD COUNT 4.64 10^6/uL (4.35-5.55); RED CELL DISTRIBUTION WIDTH 14.1 % (11.5-14.0); WHITE BLOOD COUNT 14.6 10^3/uL (4.0-10.5)
[2018-01-07 16:54] LABS: ABSOLUTE LYMPHOCYTES# (MANUAL) 0.7 10^3/uL (0.5-4.7); ABSOLUTE MONOCYTES # (MANUAL) 0.9 10^3/uL (0.1-1.4); BASOPHILS % (MANUAL) 0 % (0-2); EOSINOPHILS % (MANUAL) 0 % (0-6); LYMPHOCYTES % (MANUAL) 5 % (13-45); MONOCYTES % (MANUAL) 6 % (3-13); SEGMENTED NEUTROPHILS % (MAN) 89 % (42-78); TOTAL CELLS COUNTED 100
[2018-01-07 16:55] LABS: ANISOCYTOSIS SLIGHT; PLATELET COMMENT ADEQUATE; TOXIC GRANULATION SLIGHT
[2018-01-07 16:57] LABS: ALANINE AMINOTRANSFERASE 146 U/L (21-72); ALBUMIN 3.9 g/dL (3.5-5.0); ALKALINE PHOSPHATASE 63 U/L (38-126); ANION GAP 13 (5-19); ASPARTATE AMINO TRANSFERASE 258 U/L (17-59); BILIRUBIN,DIRECT 0.4 mg/dL (0.0-0.4); BILIRUBIN,TOTAL 1.7 mg/dL (0.2-1.3); BLOOD UREA NITROGEN 34 mg/dL (7-20); CALCIUM 9.1 mg/dL (8.4-10.2); CARBON DIOXIDE 26 mmol/L (22-30); CHLORIDE 101 mmol/L (98-107); GLUCOSE 140 mg/dL (75-110); POTASSIUM 3.8 mmol/L (3.6-5.0); TOTAL PROTEIN 7.8 g/dL (6.3-8.2)
[2018-01-07 17:00] LABS: ACETAMINOPHEN < 10 ug/mL (10-30); ALCOHOL < 10 mg/dL (NONE DETECTED); SALICYLATE < 1.0 mg/dL (2.0-20.0)
[2018-01-07 17:40] LABS: APPEARANCE,URINE SLIGHTLY-CLOUDY; BILIRUBIN,URINE NEGATIVE (NEGATIVE); GLUCOSE, URINE NEGATIVE (NEGATIVE); KETONES,URINE NEGATIVE (NEGATIVE); LEUKOCYTE ESTERASE,URINE NEGATIVE (NEGATIVE); NITRITE,URINE NEGATIVE (NEGATIVE); PROTEIN,URINE 30 mg/dL (NEGATIVE); URINE SPECIFIC GRAVITY 1.028
[2018-01-07 17:41] LABS: COLOR,URINE YELLOW
[2018-01-07 17:55] LABS: URINE BARBITURATES SCREEN NEGATIVE; URINE BENZODIAZEPINES SCREEN NEGATIVE; URINE COCAINE SCREEN UNCONFIRMED POSITIVE; URINE MARIJUANA (THC) SCREEN NEGATIVE; URINE METHADONE SCREEN NEGATIVE; URINE PHENCYCLIDINE SCREEN NEGATIVE
[2018-01-07] MEDS ORDERED: NORMAL SALINE 1000 ML 1,000 ML IV ONE ×2 (19:04→19:46)
[2018-01-07 19:39] LABS: CREATINE KINASE 1426 U/L (55-170)
--- NOTE | 2018-01-07 23:58 | EKG REPORT ---
SEVERITY:- ABNORMAL ECG - SINUS RHYTHM PROLONGED QT INTERVAL : Confirmed by: Gabbi Gaines MD 07-Jan-2018 23:57:46
[2018-01-08] MEDS ORDERED: SULFAMETHOXAZOLE/TRIMETHOPRIM 800-160 MG TABLET PO SCH (10:00)
--- NOTE | 2018-01-08 10:05 | ER Document Report ---
Doctor's Note Notes: 01/08/18 10:04 Medical rounds: Chart reviewed and patient interviewed briefly. Vital signs are satisfactory. Laboratory values are remarkable for mildly elevated LFTs, probably due to known history of hepatitis C. CK was initially elevated but has decreased on repeat. On examination, patient is alert, oriented, and cooperative. He denies any somatic complaints at this time. He is medically stable, pending evaluation by psych.
[2018-01-08 12:21] VITALS: BP 151/81
== END 2018-01-08 12:22 | disposition home or self-care (01) ==
LOC: ER 15:08
DX: R45.851 Suicidal ideations (principal); F11.10 Opioid abuse, uncomplicated; M71.022 Abscess of bursa, left elbow; F14.10 Cocaine abuse, uncomplicated; Z86.19 Personal history of other infectious and parasitic diseases; Z86.14 Personal history of Methicillin resistant Staphylococcus aureus infection
CPT/HCPCS: 93005; 99284; 36415; 80307 ×4; 82550; 85025; 80053; 81001; 84484; 93010; J3490 ×2

== ENCOUNTER 2018-07-07 16:57 | Emergency (ER) | payer MEDICAID ==
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
[2018-07-07] MEDS ORDERED: HYDROCODONE/ACETAMINOPHEN 5-325 MG (6 TAB/ER DISP) PO PRN (18:29)
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
[2018-07-07 18:54] VITALS: BP 125/83
== END 2018-07-07 19:03 | disposition home or self-care (01) ==
LOC: ER 16:57
DX: S62.306A Unspecified fracture of fifth metacarpal bone, right hand, initial encounter for closed fracture (principal); M79.641 Pain in right hand; X58.XXXA Exposure to other specified factors, initial encounter; F17.200 Nicotine dependence, unspecified, uncomplicated; I10 Essential (primary) hypertension
CPT/HCPCS: 99283

== ENCOUNTER 2018-11-16 21:36 | Inpatient (IN) | payer MEDICAID ==
[2018-11-16] MEDS ORDERED: NORMAL SALINE 1000 ML 1,000 ML IV ONE (22:43)
[2018-11-16] MEDS ORDERED: LORAZEPAM INJ 2 MG/1 ML VIAL IV ONE (22:43)
--- NOTE | 2018-11-16 22:46 | ER Document Report ---
ED Medical Screen (RME) - General Chief Complaint: Heat Exposure Stated Complaint: HEAT EXHAUSTION Time Seen by Provider: 11/16/18 22:43 Notes: 48-year-old male, comes by EMS for chief complaint of possible heat exhaustion. He reports cramps in his legs and generalized tiredness/weakness, denies any other symptoms. Patient admits to methamphetamine use when asked, denies recreational drugs otherwise. He states he has been walking around constantly for the past 2 days and thinks he is dehydrated and has heat exhaustion. He denies any medications other than Suboxone although states he has not taken this for the past 2 days or so. TRAVEL OUTSIDE OF THE [place] IN LAST 30 DAYS: No - Related Data Allergies/Adverse Reactions: No Known Allergies Allergy (Verified 07/07/18 16:59) Past Medical History - Past Medical History Cardiac Medical History: Reports: Hx Hypertension - history of Neurological Medical History: Reports: Hx Migraine Renal/ Medical History: Denies: Hx Peritoneal Dialysis GI Medical History: Reports: Hx Hepatitis Musculoskeltal Medical History: Reports Hx Arthritis, Reports Hx Musculoskeletal Deformity, Reports Hx Musculoskeletal Trauma Psychiatric Medical History: Reports: Hx Attention Deficit Hyperactivity Disorder Traumatic Medical History: Reports: Hx Fractures Infectious Medical History: Reports: Hx Hepatitis, Hx MRSA Past Surgical History: Reports: Hx Orthopedic Surgery - Right mary beth osteomyletits, rt leg ambutation, zycomatic fracture repair - Immunizations Immunizations up to date: Yes Hx Diphtheria, Pertussis, Tetanus Vaccination: Yes Physical Exam - Vital signs Vitals: Temp Pulse Resp BP Pulse Ox 98.6 F 108 H 20 137/97 H 97 11/16/18 22:18 11/16/18 22:18 11/16/18 22:18 11/16/18 22:18 11/16/18 22:18 - HEENT Eyes: Other - Pinpoint right pupil, left pupil is extremely abnormal, displaced, reportedly chronic with blindness - Cardiovascular Rhythm: Regular, Tachycardia Heart sounds: Normal auscultation, S1 appreciated, S2 appreciated Course - Re-evaluation Re-evalutation: Patient obviously under the effects of methamphetamine use, he is extremely restless, cannot hold still, mildly tachycardic. His pupils do appear pinpoint however, he states he has not taken Suboxone for the past 2 days. No complaints of chest pain or shortness of breath, no fever. IV fluids and lorazepam ordered, ordered cardiac monitoring and work-up. I have greeted and performed a rapid initial assessment of this patient. A comprehensive ED assessment and evaluation of the patient, analysis of test results and completion of the medical decision making process will be conducted by additional ED providers. - Vital Signs Vital signs: Temp Pulse Resp BP Pulse Ox 98.6 F 108 H 20 137/97 H 97 11/16/18 22:18 11/16/18 22:18 11/16/18 22:18 11/16/18 22:18 11/16/18 22:18
[2018-11-17 02:06] LABS: APPEARANCE,URINE SLIGHTLY-CLOUDY; BILIRUBIN,URINE NEGATIVE (NEGATIVE); COLOR,URINE AMBER; GLUCOSE, URINE NEGATIVE (NEGATIVE); KETONES,URINE 20 mg/dL (NEGATIVE); LEUKOCYTE ESTERASE,URINE NEGATIVE (NEGATIVE); NITRITE,URINE NEGATIVE (NEGATIVE); PROTEIN,URINE 100 mg/dL (NEGATIVE)
--- NOTE | 2018-11-17 02:14 | ER Document Report ---
ED General - General Chief Complaint: Heat Exposure Stated Complaint: HEAT EXHAUSTION Time Seen by Provider: 11/16/18 22:43 TRAVEL OUTSIDE OF THE [place] IN LAST 30 DAYS: No - HPI Notes: Patient is a 48-year-old male that presents to the emergency department for chief complaint of paranoia, leg cramps and dehydration. Patient states for the last 2 days he has been walking because he was unable to obtain a ride and was trying to get back to [place]. He states that he has been in the heat and has only had 2 small bottles of water. He started to have cramping in his legs today. Patient called EMS himself for concern that he is being followed and that he may be dehydrated. Patient does endorse methamphetamine use today. He states that he feels like people are watching him and following him. He states that he has been grieving the loss of a loved one and was in the neighborhood she grew up in today which caused him to feel a significant amount of grief. He denies any suicidal thoughts or desire to hurt himself. He does state that he feels like he needs to see a grief counselor and that he cannot get out of his head. Past Medical History: Hepatitis C Past Surgical History: Bilateral retina and cataract surgery, partial right foot amputation Social History: Methamphetamine use. Daily tobacco. Occasional alcohol. Family History: Reviewed and noncontributory for presenting illness Allergies: Reviewed, see documented allergy list. REVIEW OF SYSTEMS: CONSTITUTIONAL : No fever No chills diaphoresis No recent illness EENT: No vision changes No congestion No sore throat CARDIOVASCULAR: No chest pain No palpitations RESPIRATORY: No shortness of breath No cough No difficulty breathing GASTROINTESTINAL: No abdominal pain No nausea No vomiting No diarrhea GENITOURINARY: No dysuria No hematuria No difficulty urinating MUSCULOSKELETAL: No back pain Leg cramps No arm pain SKIN: No rashes No lesions LYMPHATIC: No swollen, enlarged glands. NEUROLOGICAL: No lightheadedness No headache No weakness No paresthesias PSYCHIATRIC: anxiety depression PHYSICAL EXAMINATION: Vital signs reviewed, nursing noted reviewed. GENERAL: Agitated, appears high on amphetamines HEAD: Atraumatic, normocephalic. EYES: PERRLA, extraocular movements intact, sclera anicteric, conjunctiva are injected ENT: nares patent, oropharynx clear without exudates. Dry mucous membranes. NECK: Normal range of motion, supple without lymphadenopathy LUNGS: Breath sounds have mild wheezing bilaterally, no tachypnea/retractions/accessory muscle use. No respiratory distress. HEART: Tachycardic rate and regular rhythm without murmurs ABDOMEN: Soft, nontender, normoactive bowel sounds. No rebound, guarding, or rigidity. No masses appreciated. EXTREMITIES: Partial right foot amputation, nontender, good range of motion, no pitting or edema. NEUROLOGICAL: No focal neurological deficits. Moves all extremities spontaneously Motor and sensory grossly intact on exam. PSYCH: Hyperactive, agitated, flight of ideas with tangential sentences SKIN: Warm, Dry, normal turgor, no rashes or lesions noted on exposed skin - Related Data Allergies/Adverse Reactions: No Known Allergies Allergy (Verified 07/07/18 16:59) Past Medical History - Social History Smoking Status: Current Every Day Smoker Family History: DM - Past Medical History Cardiac Medical History: Reports: Hx Hypertension - history of Neurological Medical History: Reports: Hx Migraine Renal/ Medical History: Denies: Hx Peritoneal Dialysis GI Medical History: Reports: Hx Hepatitis Musculoskeletal Medical History: Reports Hx Arthritis, Reports Hx Musculoskeletal Deformity, Reports Hx Musculoskeletal Trauma Psychiatric Medical History: Reports: Hx Attention Deficit Hyperactivity Disorder Traumatic Medical History: Reports: Hx Fractures Infectious Medical History: Reports: Hx Hepatitis, Hx MRSA Past Surgical History: Reports: Hx Orthopedic Surgery - Right mary beth osteomyletits, rt leg ambutation, zycomatic fracture repair - Immunizations Immunizations up to date: Yes Hx Diphtheria, Pertussis, Tetanus Vaccination: Yes Physical Exam - Vital signs Vitals: Temp Pulse Resp BP Pulse Ox 98.6 F 108 H 20 137/97 H 97 11/16/18 22:18 11/16/18 22:18 11/16/18 22:18 11/16/18 22:18 11/16/18 22:18 Course - Re-evaluation Re-evalutation: 11/17/18 02:14 Vitals reviewed. Nursing notes reviewed. Patient has dry mucous membranes and is tachycardic. His urine was dark in appearance. He has been ordered IV fluids for concern of dehydration and possible rhabdomyolysis. Patient is very agitated with flight of ideas consistent with his amphetamine ingestion. [facility] He currently is not endorsing any suicidal ideations but does express grief over the loss of a loved one and is requesting to see the counseling team in the morning. 11/17/18 04:35 Patient was reevaluated on multiple occasions. He has continued to have increasing agitation. Patient is flailing in the cot, pacing in the room, pulling at medical equipment. He had been given 2 doses of Ativan and 1 dose of Haldol with minimal change in his behavior. Patient's room has been made safe because he was pulling electrical equipment on the giles. He appears to be coming more intoxicated and will be placed in scrubs for concern that he is ingesting drugs while in the ED. He is now denying that he took any drugs. He is oriented to person but very confused to situation. He is speaking more tangentially and not making much sense. 11/17/18 06:03 Patient reevaluated. He is much more comfortable now but is still continuing to shake his legs and twitch. He does still appear to be intoxicated with methamphetamine. Patient's renal function after fluids has improved. His creatinine is now normal at 1.1. Patient is medically cleared at this point for further psychiatric evaluation of his paranoia and depression. Laboratory 11/17/18 11/17/18 11/17/18 01:21 01:21 02:25 WBC 11.6 H RBC 4.50 Hgb 13.6 Hct 38.9 MCV 87 MCH 30.3 MCHC 35.0 RDW 12.4 Plt Count 184 Seg Neutrophils % 66.3 Lymphocytes % 23.9 Monocytes % 8.6 Eosinophils % 0.0 Basophils % 1.2 Absolute Neutrophils 7.7 Absolute Lymphocytes 2.8 Absolute Monocytes 1.0 Absolute Eosinophils 0.0 Absolute Basophils 0.1 Sodium Potassium Chloride Carbon Dioxide Anion Gap BUN Creatinine Est GFR ( Amer) Est GFR (Non-Af Amer) Glucose Calcium Creatine Kinase Urine Color DIANA Urine Appearance SLIGHTLY-CLOUDY Urine pH 5.0 Ur Specific [place] 1.030 Urine Protein 100 H Urine Glucose (UA) NEGATIVE Urine Ketones 20 H Urine Blood SMALL H Urine Nitrite NEGATIVE Urine Bilirubin NEGATIVE Urine Urobilinogen 4.0 H Ur Leukocyte Esterase NEGATIVE Urine WBC (Auto) 5 Urine RBC (Auto) 1 U Hyaline Cast (Auto) 6 Urine Bacteria (Auto) TRACE Squamous Epi Cells Auto <1 Urine Mucus (Auto) MOD Urine Ascorbic Acid NEGATIVE Salicylates Urine Opiates Screen NEGATIVE Urine Methadone Screen NEGATIVE Acetaminophen Ur Barbiturates Screen NEGATIVE Ur Phencyclidine Scrn NEGATIVE Ur Amphetamines Screen U Benzodiazepines Scrn NEGATIVE Urine Cocaine Screen NEGATIVE U Marijuana (THC) Screen NEGATIVE Serum Alcohol 11/17/18 11/17/18 11/17/18 02:25 02:25 02:57 WBC RBC Hgb Hct MCV MCH MCHC RDW Plt Count Seg Neutrophils % Lymphocytes % Monocytes % Eosinophils % Basophils % Absolute Neutrophils Absolute Lymphocytes Absolute Monocytes Absolute Eosinophils Absolute Basophils Sodium Cancelled 142.0 Potassium Cancelled 3.3 L Chloride Cancelled 107 Carbon Dioxide Cancelled 23 Anion Gap Cancelled 12 BUN Cancelled 29 H Creatinine Cancelled 1.28 H Est GFR ( Amer) Cancelled > 60 Est GFR (Non-Af Amer) Cancelled 59 L Glucose Cancelled 96 Calcium Cancelled 9.1 Creatine Kinase Cancelled 3085 H Urine Color Urine Appearance Urine pH Ur Specific [place] Urine Protein Urine Glucose (UA) Urine Ketones Urine Blood Urine Nitrite Urine Bilirubin Urine Urobilinogen Ur Leukocyte Esterase Urine WBC (Auto) Urine RBC (Auto) U Hyaline Cast (Auto) Urine Bacteria (Auto) Squamous Epi Cells Auto Urine Mucus (Auto) Urine Ascorbic Acid Salicylates Cancelled < 1.0 L Urine Opiates Screen Urine Methadone Screen Acetaminophen Cancelled < 10 L Ur Barbiturates Screen Ur Phencyclidine Scrn Ur Amphetamines Screen U Benzodiazepines Scrn Urine Cocaine Screen U Marijuana (THC) Screen Serum Alcohol Cancelled < 10 11/17/18 05:20 WBC RBC Hgb Hct MCV MCH MCHC RDW Plt Count Seg Neutrophils % Lymphocytes % Monocytes % Eosinophils % Basophils % Absolute Neutrophils Absolute Lymphocytes Absolute Monocytes Absolute Eosinophils Absolute Basophils Sodium Potassium Chloride Carbon Dioxide Anion Gap BUN Creatinine Est GFR ( Amer) Est GFR (Non-Af Amer) Glucose Calcium Creatine Kinase Not Reportable Urine Color Urine Appearance Urine pH Ur Specific [place] Urine Protein Urine Glucose (UA) Urine Ketones Urine Blood Urine Nitrite Urine Bilirubin Urine Urobilinogen Ur Leukocyte Esterase Urine WBC (Auto) Urine RBC (Auto) U Hyaline Cast (Auto) Urine Bacteria (Auto) Squamous Epi Cells Auto Urine Mucus (Auto) Urine Ascorbic Acid Salicylates Urine Opiates Screen Urine Methadone Screen Acetaminophen Ur Barbiturates Screen Ur Phencyclidine Scrn Ur Amphetamines Screen U Benzodiazepines Scrn Urine Cocaine Screen U Marijuana (THC) Screen Serum Alcohol - Vital Signs Vital signs: Temp Pulse Resp BP Pulse Ox 98.6 F 108 H 20 137/97 H 97 06/04/19 22:18 11/16/18 22:18 11/16/18 22:18 11/16/18 22:18 11/16/18 22:18 - Laboratory Result Diagrams: 11/17/18 02:25 11/17/18 02:57 Laboratory results interpreted by me: 11/17/18 11/17/18 11/17/18 01:21 02:25 02:57 WBC 11.6 H Potassium 3.3 L BUN 29 H Creatinine 1.28 H Est GFR (Non-Af Amer) 59 L Creatine Kinase 3085 H Urine Protein 100 H Urine Ketones 20 H Urine Blood SMALL H Urine Urobilinogen 4.0 H Salicylates < 1.0 L Acetaminophen < 10 L - EKG Interpretation by Me Additional EKG results interpreted by me: 11/17/18 02:23 Interpreted by myself 0217: Normal sinus rhythm, rate 97, normal axis, no ectopy, no STEMI, no QT prolongation or heart block Discharge - Discharge Clinical Impression: Methamphetamine abuse, Acute kidney injury Rhabdomyolysis Qualifiers: Rhabdomyolysis type: non-traumatic Qualified Code(s): M62.82 - Rhabdomyolysis Condition: Stable Disposition: PSYCH HOSP/UNIT
[2018-11-17 02:18] LABS: URINE BARBITURATES SCREEN NEGATIVE; URINE BENZODIAZEPINES SCREEN NEGATIVE; URINE COCAINE SCREEN NEGATIVE; URINE MARIJUANA (THC) SCREEN NEGATIVE; URINE METHADONE SCREEN NEGATIVE; URINE PHENCYCLIDINE SCREEN NEGATIVE
[2018-11-17] MEDS ORDERED: LORAZEPAM INJ 2 MG/1 ML VIAL IV ONE ×2 (02:31→03:41)
[2018-11-17 02:52] LABS: ABSOLUTE BASOPHILS # (AUTO) 0.1 10^3/uL (0.0-0.2); ABSOLUTE LYMPHOCYTES (AUTO) 2.8 10^3/uL (0.5-4.7); ABSOLUTE NEUT (AUTO) 7.7 10^3/uL (1.7-8.2); BASOPHILS % (AUTO) 1.2 % (0-2); HEMATOCRIT 38.9 % (37.9-51.0); HEMOGLOBIN 13.6 g/dL (13.5-17.0); LYMPHOCYTES % (AUTO) 23.9 % (13-45); MEAN CORPUSCULAR HEMOGLOBIN 30.3 pg (27.0-33.4); MEAN CORPUSCULAR VOLUME 87 fl (80-97); MONOCYTES % (AUTO) 8.6 % (3-13); PLATELET COUNT 184 10^3/uL (150-450); RED CELL DISTRIBUTION WIDTH 12.4 % (11.5-14.0); SEGMENTED NEUTROPHILS % (AUTO) 66.3 % (42-78); TOTAL CELLS COUNTED % (AUTO) 100 %; WHITE BLOOD COUNT 11.6 10^3/uL (4.0-10.5)
[2018-11-17 03:25] LABS: ANION GAP 12 (5-19); BLOOD UREA NITROGEN 29 mg/dL (7-20); CALCIUM 9.1 mg/dL (8.4-10.2); CARBON DIOXIDE 23 mmol/L (22-30); CHLORIDE 107 mmol/L (98-107); GLUCOSE 96 mg/dL (75-110); POTASSIUM 3.3 mmol/L (3.6-5.0)
[2018-11-17 03:27] LABS: ACETAMINOPHEN < 10 ug/mL (10-30); ALCOHOL < 10 mg/dL (NONE DETECTED); SALICYLATE < 1.0 mg/dL (2.0-20.0)
[2018-11-17 03:34] LABS: CREATINE KINASE 3085 U/L (55-170)
[2018-11-17] MEDS: NORMAL SALINE 1000 ML 1,000 ML IV PRN ×2 (03:45→04:48)
[2018-11-17] MEDS ORDERED: HALOPERIDOL 5 MG TABLET PO ONE (03:57)
[2018-11-17 05:51] LABS: ANION GAP 8 (5-19); BLOOD UREA NITROGEN 28 mg/dL (7-20); CALCIUM 8.1 mg/dL (8.4-10.2); CARBON DIOXIDE 20 mmol/L (22-30); CHLORIDE 112 mmol/L (98-107); GLUCOSE 83 mg/dL (75-110); POTASSIUM 3.6 mmol/L (3.6-5.0); SODIUM 140.3 mmol/L (137-145)
[2018-11-17 06:11] LABS: CREATINE KINASE 4705 U/L (55-170)
--- NOTE | 2018-11-17 07:36 | EKG REPORT ---
SEVERITY:- NORMAL ECG - SINUS RHYTHM : Confirmed by: Santiago Gutiérrez MD 17-Nov-2018 07:35:33
[2018-11-17] MEDS ORDERED: DEXTROSE 5%-LACTATED RINGERS 1,000 ML IV ONE (08:14)
--- NOTE | 2018-11-17 09:13 | ER Document Report ---
ED General - General Chief Complaint: Heat Exposure Stated Complaint: HEAT EXHAUSTION Time Seen by Provider: 11/16/18 22:43 Notes: From previous physician's note HPI of the following: " Patient is a 48-year-old male that presents to the emergency department for chief complaint of paranoia, leg cramps and dehydration. Patient states for the last 2 days he has been walking because he was unable to obtain a ride and was trying to get back to [place]. He states that he has been in the heat and has only had 2 small bottles of water. He started to have cramping in his legs today. Patient called EMS himself for concern that he is being followed and that he may be dehydrated. Patient does endorse methamphetamine use today. He states that he feels like people are watching him and following him. He states that he has been grieving the loss of a loved one and was in the neighborhood she grew up in today which caused him to feel a significant amount of grief. He denies any suicidal thoughts or desire to hurt himself. He does state that he feels like he needs to see a grief counselor and that he cannot get out of his head." Patient was up in the emergency department overnight. His creatinine kinase is actually gone up. He remains quite somnolent and has not been able to be cleared from a mental health perspective. At this time patient is sleeping. TRAVEL OUTSIDE OF THE [place] IN LAST 30 DAYS: No - Related Data Allergies/Adverse Reactions: No Known Allergies Allergy (Verified 07/07/18 16:59) Past Medical History - General Information source: Patient, [facility] Records - Social History Smoking Status: Current Every Day Smoker Frequency of alcohol use: unknown Drug Abuse: Methamphetamine Lives with: Homeless Family History: DM Patient has suicidal ideation: No Patient has homicidal ideation: No - Past Medical History Cardiac Medical History: Reports: Hx Hypertension - history of Neurological Medical History: Reports: Hx Migraine Renal/ Medical History: Denies: Hx Peritoneal Dialysis GI Medical History: Reports: Hx Hepatitis Musculoskeletal Medical History: Reports Hx Arthritis, Reports Hx Musculoskeletal Deformity, Reports Hx Musculoskeletal Trauma Psychiatric Medical History: Reports: Hx Attention Deficit Hyperactivity Disorder Traumatic Medical History: Reports: Hx Fractures Infectious Medical History: Reports: Hx Hepatitis, Hx MRSA Past Surgical History: Reports: Hx Orthopedic Surgery - Right mary beth osteomyletits, rt leg ambutation, zycomatic fracture repair - Immunizations Immunizations up to date: Yes Hx Diphtheria, Pertussis, Tetanus Vaccination: Yes Review of Systems - Review of Systems -: Yes ROS unobtainable due to patient's medical condition Physical Exam - Vital signs Vitals: Temp Pulse Resp BP Pulse Ox 98.6 F 108 H 20 137/97 H 97 11/16/18 22:18 11/16/18 22:18 11/16/18 22:18 11/16/18 22:18 11/16/18 22:18 Interpretation: Normal - General General appearance: Appears well, Alert - HEENT Head: Normocephalic, Atraumatic Eyes: Normal Pupils: PERRL Mucous membranes: Dry - Respiratory Respiratory status: No respiratory distress Chest status: Nontender Breath sounds: Normal Chest palpation: Normal - Cardiovascular Rhythm: Regular Heart sounds: Normal auscultation Murmur: No - Abdominal Inspection: Normal Distension: No distension Bowel sounds: Normal Tenderness: Nontender Organomegaly: No organomegaly - Back Back: Normal, Nontender - Extremities General upper extremity: Normal inspection, Nontender, Normal color, Normal ROM, Normal temperature General lower extremity: Other - Normal inspection of the left lower extremity. Right lower extremity demonstrates partial foot amputation with postoperative changes.. No: Milad's sign - Neurological Neuro grossly intact: Yes Peter Coma Scale Verbal: Confused Peter Coma Scale Motor: Obeys Commands Motor strength normal: LUE, RUE, LLE, RLE Sensory: Normal - Psychological Associated symptoms: Normal mood, Uncooperative - Skin Skin Temperature: Warm Skin Moisture: Dry Skin Color: Normal Course - Re-evaluation Re-evalutation: 11/17/18 09:16 Doubtful that patient will be able to be cleared from a medical perspective for subsequent inadequate mental health evaluation with his worsening rhabdomyolysis. He has had several liters of fluid but will probably need to be on IV fluid drip. This seems more appropriate for admission to the hospital at this time. Will consult with hospitalist for help with facilitating patient's care and possibly admit. - Vital Signs Vital signs: Temp Pulse Resp BP Pulse Ox 98.6 F 108 H 24 H 110/74 99 11/16/18 22:18 11/16/18 22:18 11/17/18 07:01 11/17/18 08:00 11/17/18 08:01 - Laboratory Result Diagrams: 11/17/18 02:25 11/17/18 05:20 Laboratory results interpreted by me: 11/17/18 11/17/18 11/17/18 01:21 02:25 02:57 WBC 11.6 H Potassium 3.3 L Chloride Carbon Dioxide BUN 29 H Creatinine 1.28 H Est GFR (Non-Af Amer) 59 L Calcium Creatine Kinase 3085 H Urine Protein 100 H Urine Ketones 20 H Urine Blood SMALL H Urine Urobilinogen 4.0 H Salicylates < 1.0 L Acetaminophen < 10 L 11/17/18 05:20 WBC Potassium Chloride 112 H Carbon Dioxide 20 L BUN 28 H Creatinine Est GFR (Non-Af Amer) Calcium 8.1 L Creatine Kinase 4705 H Urine Protein Urine Ketones Urine Blood Urine Urobilinogen Salicylates Acetaminophen Discharge - Discharge Clinical Impression: Methamphetamine abuse, Acute kidney injury Rhabdomyolysis Qualifiers: Rhabdomyolysis type: non-traumatic Qualified Code(s): M62.82 - Rhabdomyolysis Condition: Stable Disposition: ADMITTED INPATIENT Admitting Provider: Norbert (Hospitalist) Unit Admitted: Medical Floor
[2018-11-17] MEDS ORDERED: POTASSI CL 20 MEQ/D5-1/2NS 1L 1,000 ML IV ONE (09:17)
[2018-11-17] MEDS ORDERED: PROMETHAZINE HCL INJ 25 MG/1 ML VIAL IV PRN (16:37)
[2018-11-17] MEDS ORDERED: ACETAMINOPHEN 650 MG SUPP.RECT PR PRN (16:37)
[2018-11-17] MEDS ORDERED: MAG HYDROX/AL HYDROX/SIMETH SUSP 30 ML UDCUP PO PRN (16:37)
[2018-11-17] MEDS ORDERED: ACETAMINOPHEN 325 MG TABLET PO PRN (16:37)
[2018-11-17] MEDS ORDERED: OLANZAPINE 5 MG TAB.RAPDIS PO PRN (17:06)
[2018-11-17] MEDS ORDERED: HALOPERIDOL LACTATE INJ 5 MG/1 ML VIAL IV PRN (17:07)
[2018-11-17] MEDS ORDERED: MORPHINE SULFATE 10 MG/ML INJ IV PRN ×2 (17:08)
[2018-11-17] MEDS: PANTOPRAZOLE SODIUM 40 MG TABLET.DR PO SCH (17:29)
[2018-11-17 18:34] LABS: ALBUMIN 3.1 g/dL (3.5-5.0); ANION GAP 6 (5-19); BLOOD UREA NITROGEN 21 mg/dL (7-20); CALCIUM 8.5 mg/dL (8.4-10.2); CARBON DIOXIDE 25 mmol/L (22-30); CHLORIDE 108 mmol/L (98-107); GLUCOSE 86 mg/dL (75-110); PHOSPHORUS 2.5 mg/dL (2.5-4.5); POTASSIUM 3.7 mmol/L (3.6-5.0); SODIUM 139.4 mmol/L (137-145)
[2018-11-17 18:46] LABS: CREATINE KINASE 2951 U/L (55-170)
[2018-11-17] MEDS: HEPARIN SOD (PORCINE) 5,000 UNIT/ML 1 ML SYRINGE SUBCUT SCH (21:41)
[2018-11-18] MEDS: HEPARIN SOD (PORCINE) 5,000 UNIT/ML 1 ML SYRINGE SUBCUT SCH ×3 (06:30→21:01)
[2018-11-18] MEDS: PANTOPRAZOLE SODIUM 40 MG TABLET.DR PO SCH ×2 (06:31→16:49)
--- NOTE | 2018-11-18 07:37 | PDOC H&P ---
History of Present Illness Admission Date/PCP: 11/17/18 09:47 Patient complains of: Patient unable to participate in this encounter. He has been intermittently awake but per the emergency room physician had taken methamphetamine and was walking extensively partly due to paranoia. He did develop rhabdomyolysis and acute kidney injury. History of Present Illness: ANGEL RUBI is a 48 year old male who, according to the emergency department physician and old records, had taken methamphetamine. He was walking extensively for an unknown amount of time. He also was not eating and drinking and has developed rhabdomyolysis with acute kidney injury. He will require admission with aggressive IV fluids, monitoring of his renal function as well as serial studies for creatinine kinase enzymes. He will also require psychiatric consult. He is currently on involuntary commitment pending medical stabilization and psychiatry's ability to have a meaningful interaction with the patient. Past Medical History Cardiac Medical History: Reports: Hypertension - history of Neurological Medical History: Reports: Migraine GI Medical History: Reports: Hepatitis Musculoskeltal Medical History: Reports: Arthritis Psychiatric Medical History: Reports: Attention Deficit Hyperactivity Disorder Denies: Depression Hematology: Denies: Anemia Infectious Medical History: Reports: Methicillin-Resistant Staph Aureus Past Surgical History Past Surgical History: Reports: Orthopedic Surgery - Right mary beth osteomyletits, rt leg ambutation, zycomatic fracture repair Social History Information Source: [facility] Records Lives with: Homeless Smoking Status: Current Every Day Smoker Frequency of Alcohol Use: Occasional Hx Recreational Drug Use: Yes Drugs: Other Hx Prescription Drug Abuse: No - Advance Directive Resuscitation Status: Full Code Surrogate healthcare decision maker:: Unable to have the conversation with the patient at this time and so I have opted for full CODE STATUS. Family History Family History: DM Parental Family History Reviewed: Yes Children Family History Reviewed: Yes Sibling(s) Family History Reviewed.: Yes Medication/Allergy Home Medications: Buprenorphine HCl/Naloxone HCl [Suboxone 8 mg-2 mg Sl Film] 1 film SL BID 11/17/18 Allergies/Adverse Reactions: No Known Allergies Allergy (Verified 07/07/18 16:59) Review of Systems ROS unobtainable: Due to mental status Physical Exam Vital Signs: Temp Pulse Resp BP Pulse Ox 97.9 F 88 18 132/77 H 99 11/17/18 14:35 11/17/18 14:35 11/17/18 14:35 11/17/18 14:35 11/17/18 14:35 Intake & Output 11/16/18 11/17/18 11/18/18 06:59 06:59 06:59 Intake Total 3000 3000 Balance 3000 3000 Weight 78 kg 83.1 kg General appearance: PRESENT: no acute distress, well-developed, other - Sleeping soundly. Did not awaken to verbal or gentle physical stimulus. He was up earlier interacting with the emergency department physician. Ear exam: PRESENT: normal external ear exam Neck exam: ABSENT: carotid bruit, JVD, lymphadenopathy, thyromegaly Respiratory exam: PRESENT: clear to auscultation lolly, symmetrical, unlabored. ABSENT: accessory muscle use, rales, rhonchi, tachypnea, wheezes Cardiovascular exam: PRESENT: RRR, +S1, +S2, systolic murmur - 1/6 GI/Abdominal exam: PRESENT: normal bowel sounds, soft. ABSENT: distended, tenderness Rectal exam: PRESENT: deferred Extremities exam: ABSENT: pedal edema Neurological exam: ABSENT: awake Psychiatric exam: ABSENT: agitated Focused psych exam: ABSENT: restlessness Skin exam: PRESENT: dry, normal color. ABSENT: mottled, rash Results Laboratory Results: 11/17/18 02:25 11/17/18 05:20 11/17/18 11/17/18 11/17/18 01:21 02:25 02:25 WBC 11.6 H RBC 4.50 Hgb 13.6 Hct 38.9 MCV 87 MCH 30.3 MCHC 35.0 RDW 12.4 Plt Count 184 Seg Neutrophils % 66.3 Lymphocytes % 23.9 Monocytes % 8.6 Eosinophils % 0.0 Basophils % 1.2 Absolute Neutrophils 7.7 Absolute Lymphocytes 2.8 Absolute Monocytes 1.0 Absolute Eosinophils 0.0 Absolute Basophils 0.1 Sodium Cancelled Potassium Cancelled Chloride Cancelled Carbon Dioxide Cancelled Anion Gap Cancelled BUN Cancelled Creatinine Cancelled Est GFR ( Amer) Cancelled Est GFR (Non-Af Amer) Cancelled Glucose Cancelled Calcium Cancelled Urine Color DIANA Urine Appearance SLIGHTLY-CLOUDY Urine pH 5.0 Ur Specific [place] 1.030 Urine Protein 100 H Urine Glucose (UA) NEGATIVE Urine Ketones 20 H Urine Blood SMALL H Urine Nitrite NEGATIVE Ur Leukocyte Esterase NEGATIVE Urine WBC (Auto) 5 Urine RBC (Auto) 1 11/17/18 11/17/18 02:57 05:20 WBC RBC Hgb Hct MCV MCH MCHC RDW Plt Count Seg Neutrophils % Lymphocytes % Monocytes % Eosinophils % Basophils % Absolute Neutrophils Absolute Lymphocytes Absolute Monocytes Absolute Eosinophils Absolute Basophils Sodium 142.0 140.3 Potassium 3.3 L 3.6 Chloride 107 112 H Carbon Dioxide 23 20 L Anion Gap 12 8 BUN 29 H 28 H Creatinine 1.28 H 1.10 Est GFR ( Amer) > 60 > 60 Est GFR (Non-Af Amer) 59 L > 60 Glucose 96 83 Calcium 9.1 8.1 L Urine Color Urine Appearance Urine pH Ur Specific [place] Urine Protein Urine Glucose (UA) Urine Ketones Urine Blood Urine Nitrite Ur Leukocyte Esterase Urine WBC (Auto) Urine RBC (Auto) 11/17/18 11/17/18 11/17/18 02:25 02:57 05:20 Creatine Kinase Cancelled 3085 H 4705 H Assessment and Plan - Diagnosis (1) Acute kidney injury Is this a current diagnosis for this admission?: Yes Plan: Aggressive IV fluids with serial studies. Acute kidney injury is from rhabdomyolysis and likely decreased p.o. intake of fluids and nutrition. (2) Rhabdomyolysis Qualifiers: Rhabdomyolysis type: non-traumatic Qualified Code(s): M62.82 - Rhabdomyolysis Is this a current diagnosis for this admission?: Yes Plan: As noted above the patient will receive aggressive IV hydration with serial studies of his serum creatinine kinase levels. This should resolve with the current treatment plan. (3) Methamphetamine abuse Is this a current diagnosis for this admission?: Yes Plan: Psychiatry consult when medically stable. Per the emergency physician's note he reported symptoms of grief. He states that he was in the neighborhood of a former love one who recently and he was experiencing significant grief. He also felt that he was being followed. No medication interventions at this time other than as needed medications for anxiety, agitation and pain. He has been on Suboxone in the past. It is unknown if he has been on any other substances although he denies same. Urine toxicology screen was negative except for lack of result in the case of amphetamines.
[2018-11-18 08:05] LABS: ABSOLUTE BASOPHILS # (AUTO) 0.1 10^3/uL (0.0-0.2); ABSOLUTE EOSINOPHILS # (AUTO) 0.3 10^3/uL (0.0-0.6); ABSOLUTE LYMPHOCYTES (AUTO) 1.5 10^3/uL (0.5-4.7); ABSOLUTE MONOCYTES (AUTO) 0.6 10^3/uL (0.1-1.4); ABSOLUTE NEUT (AUTO) 2.5 10^3/uL (1.7-8.2); BASOPHILS % (AUTO) 1.9 % (0-2); EOSINOPHILS % (AUTO) 5.2 % (0-6); HEMATOCRIT 38.2 % (37.9-51.0); HEMOGLOBIN 13.4 g/dL (13.5-17.0); MEAN CORPUSCULAR HEMOGLOBIN 30.5 pg (27.0-33.4); MEAN CORPUSCULAR HGB CONC 35.2 g/dL (32.0-36.0); MEAN CORPUSCULAR VOLUME 87 fl (80-97); MONOCYTES % (AUTO) 11.8 % (3-13); PLATELET COUNT 157 10^3/uL (150-450); RED CELL DISTRIBUTION WIDTH 12.5 % (11.5-14.0); SEGMENTED NEUTROPHILS % (AUTO) 51.1 % (42-78); TOTAL CELLS COUNTED % (AUTO) 100 %
[2018-11-18 08:19] LABS: ANION GAP 6 (5-19); BLOOD UREA NITROGEN 13 mg/dL (7-20); CALCIUM 8.7 mg/dL (8.4-10.2); CARBON DIOXIDE 26 mmol/L (22-30); CHLORIDE 107 mmol/L (98-107); CREATINE KINASE 1557 U/L (55-170); GLUCOSE 99 mg/dL (75-110); PHOSPHORUS 2.4 mg/dL (2.5-4.5); POTASSIUM 3.9 mmol/L (3.6-5.0); SODIUM 139.3 mmol/L (137-145)
[2018-11-18] MEDS: NORMAL SALINE 1000 ML 1,000 ML IV PRN ×3 (08:38→22:28)
[2018-11-18] MEDS: LORAZEPAM INJ 2 MG/1 ML VIAL IV PRN ×3 (08:38→21:01)
[2018-11-18] MEDS ORDERED: (PENDING PHARMACY ID) (Buprenorphine Hcl/Naloxone Hcl [Suboxone 8 Mg-2 Mg Sl Film] 1 FILM) SL SCH (10:00)
[2018-11-19] MEDS: HEPARIN SOD (PORCINE) 5,000 UNIT/ML 1 ML SYRINGE SUBCUT SCH ×2 (05:30→14:00)
[2018-11-19] MEDS: PANTOPRAZOLE SODIUM 40 MG TABLET.DR PO SCH (05:31)
[2018-11-19 05:38] LABS: HEMATOCRIT 36.6 % (37.9-51.0); HEMOGLOBIN 12.9 g/dL (13.5-17.0); MEAN CORPUSCULAR HEMOGLOBIN 30.3 pg (27.0-33.4); MEAN CORPUSCULAR HGB CONC 35.2 g/dL (32.0-36.0); MEAN CORPUSCULAR VOLUME 86 fl (80-97); PLATELET COUNT 146 10^3/uL (150-450); RED BLOOD COUNT 4.26 10^6/uL (4.35-5.55); RED CELL DISTRIBUTION WIDTH 12.7 % (11.5-14.0); WHITE BLOOD COUNT 4.5 10^3/uL (4.0-10.5)
[2018-11-19 05:47] LABS: ANION GAP 9 (5-19); BLOOD UREA NITROGEN 8 mg/dL (7-20); CALCIUM 8.1 mg/dL (8.4-10.2); CARBON DIOXIDE 22 mmol/L (22-30); CHLORIDE 112 mmol/L (98-107); CREATINE KINASE 659 U/L (55-170); GLUCOSE 96 mg/dL (75-110); PHOSPHORUS 3.5 mg/dL (2.5-4.5); SODIUM 142.6 mmol/L (137-145)
[2018-11-19 07:04] LABS: ABSOLUTE LYMPHOCYTES# (MANUAL) 1.2 10^3/uL (0.5-4.7); ABSOLUTE MONOCYTES # (MANUAL) 0.5 10^3/uL (0.1-1.4); BASOPHILS % (MANUAL) 2 % (0-2); EOSINOPHILS % (MANUAL) 4 % (0-6); LYMPHOCYTES % (MANUAL) 27 % (13-45); MONOCYTES % (MANUAL) 11 % (3-13); SEGMENTED NEUTROPHILS % (MAN) 56 % (42-78); TOTAL CELLS COUNTED 100
[2018-11-19 07:05] LABS: PLATELET COMMENT ADEQUATE
[2018-11-19 07:07] LABS: RBC MORPHOLOGY COMMENT NORMO-CYTIC/CHROMIC
--- NOTE | 2018-11-19 08:47 | PSYCHOLOGICAL NOTE ---
Addendum entered and electronically signed by JANIE JAMES LPC 11/19/18 08:47: Continued Impression/Plan: Provided patient with the outpatient MH resource sheet which highlighted [facility], [facility] and documented local [facility] contact information. Original Note: Psych Note - Psych Note Date seen by psych provider: 11/18/18 Time seen by psych provider: 08:54 - Chart review at 0854. Evaluation from 1505- 1517. Psych Note: Presenting Problem: IVC due to meth intoxication/induced psychosis (UDS positive for Meth). He became more and more agitated/irritable while in the ED 11/17/18 and required chemical sedation (Haldol, Ativan). He also mentioned experiencing grief. He stated he had been walking for a couple days in the heat without much water. He was admitted for IRIS, Rhabdo and meth abuse. Today he admitted to using meth the morning of 11/17/18 after being sober for 80 days, had been in a penitentiary house in [place] for Opioid addiction/connected to [facility] in [place]/had been on Suboxone but stopped it 3 weeks ago, cannot go back there, made plans to make way back to [facility] where son resides but that fell through and he is not welcomed there and he had been thinking about his old est son's mother who was killed/he never had anyone help him deal with it/he has nightmares from it. He denied SI and commented "not seriously, sure there are times when I think I don't want to be here anymore but would never do anything." He denied previous attempts. He reported history of ADHD/PTSD (Fci related)/hyper vigilance and had been on Prazosin as well as something else he could not recall. He stated he has no place to stay/is homeless and asked "why can't I go to a hospital?" Patient had been seen by [facility] December 2017 for SA and linked to [facility], as well as December 2016 for Opioid Dependence/Severe Depression. Patient presented alert and oriented to self, person, place, time and situation. Mood was irritable with congruent affect (likely from sobering up) but he was calm, cooperative and interactive. He denied SI/HI. He did not appear to be responding to internal stimuli as evidenced by fair eye contact, answering questions when addressed, staying on topic and carrying on dialogue conversation. Thought processes were linear and organized. Conversational speech was within normal limits for rate, tone and prosody. Intellectual abilities are estimated to be average. Insight, judgment and impulse control were fair as evidenced by being sober, no observed psychosis and linear/organized thinking. Diagnosis: 292.89 (F15.122) Methamphetamine Intoxication, With Perceptual Disturbances, With Mild Use Disorder V62.82 (Z63.4) Uncomplicated Bereavement 304.00 (F11.20) Opioid Use Disorder, Severe by History per patient and previous ED visits Impression/Plan: Patient is cleared from acute psychiatric Services. Physical chart did not have any IVC paperwork. He denied SI/HI and no observed psychosis. He has had time to sober up from meth use which he admitted to. He identified he is grieving/has never dealt with/has nightmares about the of his oldest son's mother. He acknowledged he is homeless. Patient identified he had been iving in a penitentiary house in [place] after Opioid treatment and linked with [facility] for MH/SA services but came this way to be close to son which is not an option. He stated he cannot return to the [place]. Want to find out why (his choice versus facility not allowing) and if interested in detox/SA treatment but not being picky then will link to treatment. Consulted with Dr. Dodson regarding the management and care of patient. Attending Hospitalist made aware of recommendations.
[2018-11-19 14:00] VITALS: BP 128/90
--- NOTE | 2018-11-30 19:13 | PDOC DISCHARGE SUMMARY ---
General - Admit/Disc Date/PCP Admission Date/Primary Care Provider: 11/17/18 09:47 Discharge Date: 11/19/18 - Discharge Diagnosis (1) Acute kidney injury Is this a current diagnosis for this admission?: Yes (2) Methamphetamine abuse Is this a current diagnosis for this admission?: Yes (3) Rhabdomyolysis Is this a current diagnosis for this admission?: Yes - Additional Information Resuscitation Status: Full Code Home Medications: Buprenorphine HCl/Naloxone HCl [Suboxone 8 mg-2 mg Sl Film] 1 film SL BID 11/17/18 History of Present Illness History of Present Illness: ANGEL RUBI is a 48 year old male who, according to the emergency department physician and old records, had taken methamphetamine. He was walking extensively for an unknown amount of time. He also was not eating and drinking and has developed rhabdomyolysis with acute kidney injury. He will require admission with aggressive IV fluids, monitoring of his renal function as well as serial studies for creatinine kinase enzymes. He will also require psychiatric consult. He is currently on involuntary commitment pending medical stabiliza tion and psychiatry's ability to have a meaningful interaction with the patient. Hospital Course Hospital Course: (1) Acute kidney injury Resolved. Creatinine wnl. Acute kidney injury is from rhabdomyolysis and likely decreased p.o. intake of fluids and nutrition. Was started on IV fluids with serial studies. (2) Rhabdomyolysis Improved. Denied any pain at the time of discharge. CK 499. Kidney function wnl. Was advised to stay hydrated and follow up with PCP and Nephrology. (3) Methamphetamine abuse Alert and oriented x 4. Psychiatry consult consulted and pt cleared from IVC. Please refer to note. Per the emergency physician's note he reported symptoms of grief. He states that he was in the neighborhood of a former love one who recently and he was experiencing significant grief. He also felt that he was being followed. No medication interventions at this time other than as needed medications for anxiety, agitation and pain. Restarted on Suboxone and asked to restart on discharge. Discharge planning was consulted and patient was given information about a place to stay. Please refer to discharge planning note. Physical Exam Vital Signs: Temp Pulse Resp BP Pulse Ox 98.0 F 64 18 128/90 H 100 11/19/18 16:18 11/19/18 16:18 11/19/18 16:18 11/19/18 16:18 11/19/18 16:18 General appearance: PRESENT: no acute distress, well-developed, well-nourished Head exam: PRESENT: atraumatic, normocephalic Respiratory exam: PRESENT: clear to auscultation lolly. ABSENT: rales, rhonchi, wheezes GI/Abdominal exam: PRESENT: normal bowel sounds, soft. ABSENT: distended, guarding, mass, organolmegaly, rebound, tenderness Neurological exam: PRESENT: alert, awake, oriented to person, oriented to place, oriented to time, oriented to situation, CN II-XII grossly intact. ABSENT: motor sensory deficit Skin exam: PRESENT: dry, intact, warm. ABSENT: cyanosis, rash Results Laboratory Results: 11/19/18 05:00 11/19/18 05:00 11/17/18 11/17/18 11/17/18 02:25 02:57 05:20 Creatine Kinase Cancelled 3085 H 4705 H 11/17/18 11/18/18 11/19/18 17:53 06:56 05:00 Creatine Kinase 2951 H 1557 H 659 H 11/19/18 13:27 Creatine Kinase 449 H Qualifiers - * PATIENT BEING DISCHARGED WITH ANY OF THE FOLLOWING DIAGNOSIS: No Acute Heart Failure - Is this a Heart Failure Patient?: No
== END 2018-11-19 17:07 | disposition other institution (70) | DRG 683 ==
LOC: ER 21:36 → EH 11-17 09:47 → 4N 11-17 14:05
PROVIDERS: ADMIT Hospitalist; ATTEND Hospitalist
DX: N17.9 Acute kidney failure, unspecified (principal); M62.82 Rhabdomyolysis; E86.0 Dehydration; F15.10 Other stimulant abuse, uncomplicated; I10 Essential (primary) hypertension; G43.909 Migraine, unspecified, not intractable, without status migrainosus; M19.90 Unspecified osteoarthritis, unspecified site; F90.9 Attention-deficit hyperactivity disorder, unspecified type; K75.9 Inflammatory liver disease, unspecified; Z86.14 Personal history of Methicillin resistant Staphylococcus aureus infection; Z59.0 Homelessness; F17.200 Nicotine dependence, unspecified, uncomplicated
CPT/HCPCS: 36415; 80048; 80069; 80307; 81001; 82550; 82962; 83735; 84100; 85025; 93005; 93010; 99285; J1630; J1644; J2060; J3480; J3490; J7030; J7121

== ENCOUNTER 2018-11-19 19:37 | Emergency (ER) | payer MEDICAID ==
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
[2018-11-19 21:16] LABS: APPEARANCE,URINE CLEAR; BILIRUBIN,URINE NEGATIVE (NEGATIVE); COLOR,URINE YELLOW; GLUCOSE, URINE NEGATIVE (NEGATIVE); KETONES,URINE NEGATIVE (NEGATIVE); LEUKOCYTE ESTERASE,URINE NEGATIVE (NEGATIVE); NITRITE,URINE NEGATIVE (NEGATIVE); PROTEIN,URINE NEGATIVE (NEGATIVE); URINE SPECIFIC GRAVITY 1.011
[2018-11-19 21:31] LABS: URINE AMPHETAMINES SCREEN UNCONFIRMED POSITIVE; URINE BARBITURATES SCREEN NEGATIVE; URINE BENZODIAZEPINES SCREEN NEGATIVE; URINE COCAINE SCREEN NEGATIVE; URINE MARIJUANA (THC) SCREEN NEGATIVE; URINE METHADONE SCREEN NEGATIVE; URINE PHENCYCLIDINE SCREEN NEGATIVE
[2018-11-19 21:41] LABS: HEMATOCRIT 40.3 % (37.9-51.0); HEMOGLOBIN 14.2 g/dL (13.5-17.0); MEAN CORPUSCULAR HEMOGLOBIN 30.6 pg (27.0-33.4); MEAN CORPUSCULAR HGB CONC 35.4 g/dL (32.0-36.0); MEAN CORPUSCULAR VOLUME 87 fl (80-97); PLATELET COUNT 192 10^3/uL (150-450); RED BLOOD COUNT 4.65 10^6/uL (4.35-5.55); RED CELL DISTRIBUTION WIDTH 12.5 % (11.5-14.0); WHITE BLOOD COUNT 6.7 10^3/uL (4.0-10.5)
[2018-11-19 21:59] LABS: ALANINE AMINOTRANSFERASE 119 U/L (21-72); ALKALINE PHOSPHATASE 50 U/L (38-126); ANION GAP 9 (5-19); ASPARTATE AMINO TRANSFERASE 172 U/L (17-59); BILIRUBIN,DIRECT 0.4 mg/dL (0.0-0.4); BILIRUBIN,TOTAL 0.6 mg/dL (0.2-1.3); BLOOD UREA NITROGEN 9 mg/dL (7-20); CALCIUM 9.4 mg/dL (8.4-10.2); CARBON DIOXIDE 27 mmol/L (22-30); CHLORIDE 106 mmol/L (98-107); GLUCOSE 86 mg/dL (75-110); POTASSIUM 3.7 mmol/L (3.6-5.0); TOTAL PROTEIN 8.1 g/dL (6.3-8.2)
[2018-11-19 22:00] LABS: ABSOLUTE LYMPHOCYTES# (MANUAL) 2.5 10^3/uL (0.5-4.7); ABSOLUTE MONOCYTES # (MANUAL) 0.7 10^3/uL (0.1-1.4); ABSOLUTE NEUTROPHILS# (MANUAL) 3.1 10^3/uL (1.7-8.2); BASOPHILS % (MANUAL) 3 % (0-2); EOSINOPHILS % (MANUAL) 4 % (0-6); LYMPHOCYTES % (MANUAL) 36 % (13-45); MONOCYTES % (MANUAL) 10 % (3-13); SEGMENTED NEUTROPHILS % (MAN) 46 % (42-78); TOTAL CELLS COUNTED 100
[2018-11-19 22:01] LABS: ACETAMINOPHEN < 10 ug/mL (10-30); ALCOHOL < 10 mg/dL (NONE DETECTED); SALICYLATE < 1.0 mg/dL (2.0-20.0)
[2018-11-19 22:03] LABS: PLATELET COMMENT ADEQUATE
[2018-11-19 22:04] LABS: RBC MORPHOLOGY COMMENT NORMO-CYTIC/CHROMIC
--- NOTE | 2018-11-19 22:14 | EKG REPORT ---
SEVERITY:- NORMAL ECG - SINUS RHYTHM : Confirmed by: Santiago Gutiérrez MD 19-Nov-2018 22:13:03
[2018-11-19 23:26] LABS: CREATINE KINASE 444 U/L (55-170)
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
--- NOTE | 2018-11-20 10:09 | ER Document Report ---
Doctor's Note Notes: 11/20/18 10:07 Rounds: Chart reviewed patient sleeping very soundly so I am not going to awaken him at this time. Patient is being evaluated for suicidal thoughts. Also history of opioid abuse. Patient says he also just had some methamphetamine a couple of days ago. Drug screen is positive for amphetamines. She has a very minimal elevation of his LFTs. His CPK is 444. Recent evaluation for rhabdo. Vital signs are all essentially normal. Patient appears to be medically stable for transfer or discharge. Gagan Loaiza MD
[2018-11-20 13:10] VITALS: BP 132/80
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
== END 2018-11-20 13:10 | disposition home or self-care (01) ==
LOC: ER 19:37
DX: F32.9 Major depressive disorder, single episode, unspecified (principal); Z59.0 Homelessness; R45.851 Suicidal ideations; I10 Essential (primary) hypertension; M19.90 Unspecified osteoarthritis, unspecified site; F90.9 Attention-deficit hyperactivity disorder, unspecified type
CPT/HCPCS: 36415; 80307; 81001; 82550; 83735; 93005; 93010; 99285